=== PATIENT | female | born 1965 | race American Indian/Alaskan Native ===

== ENCOUNTER 2023-06-09 14:47 | Outpatient (RCR) | payer MEDICAID, SELFPAY | END 2023-06-23 23:59 | disposition home or self-care (01) | LOC: CPTX 14:47 | PROVIDERS: PCP Nurse Practitioner Family; Referring Provider Nurse Practitioner Family; Visit Provider Nurse Practitioner Family | DX: Z53.9 Procedure and treatment not carried out, unspecified reason (principal) ==

== ENCOUNTER 2023-12-01 11:11 | Outpatient (RCR) | payer MEDICAID, SELFPAY | END 2023-12-24 23:59 | disposition home or self-care (01) | LOC: CPTX 11:11 | PROVIDERS: PCP Nurse Practitioner Family; Referring Provider Nurse Practitioner Family; Visit Provider Nurse Practitioner Family | DX: Z53.8 Procedure and treatment not carried out for other reasons (principal) ==

== ENCOUNTER 2024-04-10 13:07 | Outpatient (AMB) | payer MEDICAID, SELFPAY ==
[2024-04-10 13:26] VITALS: BP 109/72; PULSE 94; RESP 18; TEMP 36.3; O2SAT 94; BMI 32.3
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
== END 2024-04-10 13:50 | disposition home or self-care (01) ==
LOC: HODSRG 13:07
PROVIDERS: PCP Nurse Practitioner Family; Referring Provider Nurse Practitioner Family; Supervising Provider Orthopaedic Surgery Adult Reconstructive Orthopaedic Surgery; Visit Provider Orthopaedic Surgery Adult Reconstructive Orthopaedic Surgery
DX: T81.49XA Infection following a procedure, other surgical site, initial encounter (principal); Y84.9 Medical procedure, unspecified as the cause of abnormal reaction of the patient, or of later complication, without mention of misadventure at the time of the procedure
CPT/HCPCS: 99213; G0463

== ENCOUNTER → 2024-11-20 | Outpatient (CLI) | payer MEDICAID, SELFPAY ==
--- NOTE | 2024-11-20 14:00 | XR_ITS ---
Examination: Screening digital mammography, bilateral Computer aided detection 3-D breast Tomosynthesis, bilateral Date and time of exam: November 20, 2024 1414 hours Compared to mammograms dating to May 03, 2008 Indication: Screening Technique: Nonmagnified MLO, CC views of the breasts to been obtained, reconstructed from 3-D Tomosynthesis images. R2 computer aided detection program utilized for evaluation of suspicious masses and/or abnormal calcifications. 3-D Tomosynthesis images obtained. Findings: Scattered areas of fibroid rather density. 14 mm focal asymmetry retroareolar region right breast Impression: BI-RADS Category 0: Incomplete: Need additional imaging evaluation Recommend follow-up spot tomographic views of 14 mm focal asymmetry retroareolar region right breast as well as bilateral breast sonography to complete the workup
== END | disposition home or self-care (01) ==
LOC: CDIM 14:05
PROVIDERS: Referring Provider Nurse Practitioner Family; Visit Provider Nurse Practitioner Family
DX: Z12.31 Encounter for screening mammogram for malignant neoplasm of breast (principal); N64.89 Other specified disorders of breast
CPT/HCPCS: 77063; 77067

== ENCOUNTER 2025-01-04 10:36 | Inpatient (IN) | payer MEDICAID, SELFPAY ==
[2025-01-04 10:37] VITALS: BMI 31.7
[2025-01-04 10:57] VITALS: BP 144/83; PULSE 82; RESP 18; TEMP 37.1; O2SAT 99
--- NOTE | 2025-01-04 11:11 | XR_ITS ---
Examination: Bilateral hands or views Technique: AP, lateral each hand 4 views Date and time of exam: January 04, 2025, 1137 hours INDICATIONS: Swelling both hands beginning one week ago. Findings: Bone destruction involving the distal phalanx left third digit Bone destruction involving the ungual tuft tip distal phalanx right third digit No fractures No foreign bodies IMPRESSION: Osteomyelitis distal phalanx left third digit Osteomyelitis ungual tuft tip distal phalanx right third digit
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
[2025-01-04 11:39] LABS: Collection Type, Urine Clean Catch; RBC,Urine 0 /hpf (0-3)
[2025-01-04 11:49] LABS: Lactate (Lactic Acid) 1.5 mMol/L (0.4-2.0)
[2025-01-04 11:51] LABS: Basophils # (Auto) 0.0 Thou/mm3 (0.0-0.2); Basophils % (Auto) 1 % (0-2.5); Eosinophils # (Auto) 0.2 Thou/mm3 (0.0-0.5); Eosinophils % (Auto) 2 % (0-10); Hematocrit 42.5 % (36.0-46.0); Hemoglobin 14.3 g/dL (12.0-16.0); Immature Granulocytes Auto 0.02 Thou/mm3 (0.00-0.00); Lymphocytes # (Auto) 1.8 Thou/mm3 (1.0-4.8); Lymphocytes % (Auto) 20 % (10-50); Mean Corpuscular HGB Conc 33.6 g/dl (31.0-37.0); Mean Corpuscular Hemoglobin 28.7 pg (25.0-35.0); Mean Corpuscular Volume 85 fL (80-100); Monocytes # (Auto) 0.7 Thou/mm3 (0.0-0.8); Monocytes % (Auto) 8 % (0-12); Neutrophils # (Auto) 6.2 Thou/mm3 (1.8-7.7); Neutrophils % (Auto) 69 % (37-80); Nucleated Red Blood Cell # 0.00 Thou/mm3 (0.00-0.00); Nucleated Red Blood Cell % 0 /100 WBC (0); Platelet Count 280 Thou/mm3 (140-440); RDW Standard Deviation 36.0 fL (36.4-46.3); Red Blood Count 4.98 Miln/mm3 (4.00-5.20); White Blood Count 8.9 Thou/mm3 (3.6-11.0)
[2025-01-04 11:59] LABS: Bilirubin,Urine Negative (Negative); Blood,Urine Negative (Negative); Clarity,Urine Clear (Clear/Hazy); Color,Urine Lt-Yellow (Lt Yel-Yel); Glucose, Urine 4+ (Negative); Ketones,Urine Negative (Negative); Leukocyte Esterase,Urine Positive (Negative); Nitrite,Urine Negative (Negative); PH,Urine 6.0 (5.0-7.0); Protein,Urine Negative (Neg - Trace); Specific Gravity,Urine 1.035 (1.001-1.035); Squamous Epithelial Cell,Urine 2 /hpf (0-5); Urobilinogen,Urine Negative mg/dL (0.0-1.0); WBC,Urine 2 /hpf (0-5)
[2025-01-04 12:02] LABS: Sed Rate (ESR) 49 mm/hr (0-30)
[2025-01-04 12:10] VITALS: BP 131/82; PULSE 69; RESP 17; TEMP 37.1; O2SAT 95
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
[2025-01-04] MEDS: cefTRIAXone/D5w 1gm IV premix 1 GM/50 ML BAG IV ×2 (12:17→16:17)
[2025-01-04 12:18] LABS: Alanine Aminotransferase 15 U/L (10-49); Albumin, Serum 4.3 gm/dL (3.5-5.0); Albumin/Globulin Ratio 1.3 (1.2-2.2); Alkaline Phosphatase 151 U/L (46-116); Anion Gap 10 (7-16); Aspartate Amino Transferase 17 U/L (0-34); BUN/Creatinine Ratio 13 Ratio (12-20); Bilirubin,Total 0.4 mg/dL (0.3-1.2); Blood Urea Nitrogen 10 mg/dL (9-23); C-Reactive Protein 2.9 mg/dL (0.0-0.9); Calcium 9.4 mg/dL (8.3-10.6); Calcium (Corrected) 9.4 mg/dL (8.5-10.1); Carbon Dioxide 30.9 mMol/L (20.0-31.0); Chloride 98 mMol/L (98-107); Creatinine (Component) 0.8 mg/dL (0.6-1.3); Estimated Creatinine Clearance 81.3 mL/min (>60); Globulin 3.3 gm/dL (2.3-3.5); Glucose 335 mg/dL (74-106); Osmolality,Calculated 289 (275-295); Potassium 3.8 mMol/L (3.4-5.1); Procalcitonin < 0.04 ng/ml (0.0-0.49); Sodium 139 mMol/L (136-145); Total Protein 7.6 gm/dL (5.7-8.2); eGFR > 60 See Note
[2025-01-04] MEDS: MORPHINE SULF INJ 4 MG/ML VIAL IVP (13:07)
[2025-01-04] MEDS: VANCOMYCIN/NS 1 GM IVPB 200 ML IV (13:16)
--- NOTE | 2025-01-04 13:21 | PC.CC ---
Addendum entered by Jose M Muñoz RN 01/04/25 15:22: transfer canceled per YODIT Philippe Addendum entered by Jose M Muñoz RN 01/04/25 15:15: plastic surgeon is Dr. Otis Bennett Addendum entered by Jose M Muñoz RN 01/04/25 15:12: 1510: received call from Lucia arroyo/ [facility], she stated per plastic surgeon no need for transfer, can treat with keflex and f/u [facility] clinic in [place] as outpatient next week. Addendum entered by Jose M Muñoz RN 01/04/25 14:29: 1420: received call from Angela, he stated he reached out to Dr. Wagner and to try another facility. Call [facility], spoke to Lucia, transfer initiated. Lucia spoke to Angela. Lucia will review clinicals and call back. Called Radha in ER, informed her that she will have to take over. Addendum entered by Jose M Muñoz RN 01/04/25 14:17: 1356: spoke to Denae, provided the reccomendations from Dr. Santoyo. Denae stated he will reach out to our gen surg Dr. Arreola. 1348: received call from Yasmin arroyo/ Keiko STARR, she stated Dr. José Luis Santoyo hand surgeon determined no need for transfer. his recommendations were provided: remove nail from finger, admit for IV antibiotics . Addendum entered by Jose M Muñoz RN 01/04/25 13:41: 1334: Yasmin arroyo/ AJAY STARR called back, she spoke to YODIT Philippe. She will present case and call back Original Note: 1319: Called [facility], spoke to Yasmin, transfer request initiated. She will wait for clinicals to review and call back. 1318: Gathered clinicals and sent to [facility] and [facility]. 1312: received call from Denae [employer] to request transfer for hand surgeon for cellulitits osteomyelitis left middle finger.
[2025-01-04 13:56] VITALS: BP 118/80; PULSE 67; RESP 19; O2SAT 96
--- NOTE | 2025-01-04 15:57 | XR_ITS ---
Examination: Left knee 2 views Technique one AP lateral left knee 2 views Date and time: January 04, 2025, 1624 hours INDICATIONS: Redness and tenderness left knee 3 days. FINDINGS: Advanced tricompartment osteoarthritis Healed patellar fracture Large knee effusion Soft tissue swelling prepatellar IMPRESSION: Advanced tricompartment osteoarthritis No dylan cortical bone destruction Consider ultrasound soft tissue knee follow-up to exclude prepatellar abscess or hematoma
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
[2025-01-04 16:20] VITALS: BP 132/87; PULSE 71; RESP 19; O2SAT 97
[2025-01-04] MEDS: INSULIN LISPRO (AdmeLOG) 1 UNIT/0.01 ML UNIT SC (17:24)
[2025-01-04 18:18] VITALS: BP 132/70; PULSE 76; RESP 18; TEMP 36.6; O2SAT 95
--- NOTE | 2025-01-04 19:38 | PC.NURSE ---
ATTEMPTED TO CALL REPORT NO ANSWER
[2025-01-04 19:55] VITALS: BMI 34.0
[2025-01-04 20:00] VITALS: BP 139/81; PULSE 78; RESP 17; TEMP 36.9; O2SAT 94
[2025-01-04] MEDS: DIAZEPAM 5 MG TABLET 10 MG PO (21:28)
[2025-01-04] MEDS: VANCOMYCIN/D5W 1,250 MG IVPB 250 ML 120 MG IV (21:28)
[2025-01-04] MEDS: RINGERS LACTATED 1000 ML 500 ML 75 ML IV (21:36)
[2025-01-04] MEDS: HEPARIN SOD INJ 5000 UNIT/ML VIAL SC (21:51)
[2025-01-05] VITALS: BP 130/68; PULSE 70; RESP 17; TEMP 36.8; O2SAT 92
[2025-01-05 04:00] VITALS: BP 118/70; PULSE 63; RESP 17; TEMP 36.9; O2SAT 92
[2025-01-05 05:04] LABS: Basophils # (Auto) 0.1 Thou/mm3 (0.0-0.2); Basophils % (Auto) 1 % (0-2.5); Eosinophils # (Auto) 0.2 Thou/mm3 (0.0-0.5); Eosinophils % (Auto) 3 % (0-10); Hematocrit 40.3 % (36.0-46.0); Hemoglobin 13.6 g/dL (12.0-16.0); Immature Granulocytes Auto 0.02 Thou/mm3 (0.00-0.00); Lymphocytes # (Auto) 2.0 Thou/mm3 (1.0-4.8); Lymphocytes % (Auto) 27 % (10-50); Mean Corpuscular HGB Conc 33.7 g/dl (31.0-37.0); Mean Corpuscular Hemoglobin 28.5 pg (25.0-35.0); Mean Corpuscular Volume 85 fL (80-100); Monocytes # (Auto) 0.6 Thou/mm3 (0.0-0.8); Monocytes % (Auto) 8 % (0-12); Neutrophils # (Auto) 4.6 Thou/mm3 (1.8-7.7); Neutrophils % (Auto) 61 % (37-80); Nucleated Red Blood Cell # 0.00 Thou/mm3 (0.00-0.00); Nucleated Red Blood Cell % 0 /100 WBC (0); Platelet Count 258 Thou/mm3 (140-440); RDW Standard Deviation 35.2 fL (36.4-46.3); Red Blood Count 4.77 Miln/mm3 (4.00-5.20); White Blood Count 7.6 Thou/mm3 (3.6-11.0)
[2025-01-05 05:27] LABS: Glucose Estimated Average 286 mg/dL (80-131); Hemoglobin A1C 11.6 % Hgb (4.8-6.0)
[2025-01-05 05:28] LABS: Alanine Aminotransferase 11 U/L (10-49); Albumin, Serum 3.8 gm/dL (3.5-5.0); Albumin/Globulin Ratio 1.3 (1.2-2.2); Alkaline Phosphatase 136 U/L (46-116); Anion Gap 10 (7-16); Aspartate Amino Transferase 15 U/L (0-34); BUN/Creatinine Ratio 13 Ratio (12-20); Bilirubin,Total 0.4 mg/dL (0.3-1.2); Blood Urea Nitrogen 8 mg/dL (9-23); Calcium 8.9 mg/dL (8.3-10.6); Calcium (Corrected) 9.1 mg/dL (8.5-10.1); Carbon Dioxide 27.9 mMol/L (20.0-31.0); Cardiac Risk Estimate 4.3 RATIO (3.7-5.6); Chloride 101 mMol/L (98-107); Cholesterol 166 mg/dL (132-200); Creatinine (Component) 0.6 mg/dL (0.6-1.3); Estimated Creatinine Clearance 112.3 mL/min (>60); Globulin 2.9 gm/dL (2.3-3.5); Glucose 206 mg/dL (74-106); HDL Cholesterol 39 mg/dL (40-60); LDL Cholesterol,Calculated 95 mg/dL (0-130); Osmolality,Calculated 281 (275-295); Potassium 3.6 mMol/L (3.4-5.1); Sodium 139 mMol/L (136-145); Total Protein 6.7 gm/dL (5.7-8.2); Triglycerides 160 mg/dL (30-150); eGFR > 60 See Note
--- NOTE | 2025-01-05 07:26 | PC.NURSE ---
Patient refused 2 units of insulin stating I only want 1 unit, not 2. 2 is too much for me. education provided on sliding scale insulin dosage, and risks of uncontrolled blood sugar.
[2025-01-05 08:00] VITALS: BP 126/57; PULSE 59; RESP 18; TEMP 36.2; O2SAT 93
--- NOTE | 2025-01-05 09:25 | PC.NURSE ---
RN made aware by warehouse shift supervisor RN that patient has home meds at bedside. this RN made request to patient to allow RN to take medications to pharmacy. Patient refused stating my daughter will take them home. patient educated on not taking home meds and MD Liz made aware.
[2025-01-05] MEDS: HEPARIN SOD INJ 5000 UNIT/ML VIAL SC (09:29)
[2025-01-05] MEDS: cefTRIAXone/D5w 2gm 2 GM/50 ML BAG IV (09:29)
[2025-01-05 09:50] VITALS: BMI 33.8
[2025-01-05] MEDS: VANCOMYCIN/D5W 1,250 MG IVPB 250 ML 120 MG IV ×2 (10:32→22:51)
--- NOTE | 2025-01-05 11:18 | PC.SS ---
59YO female, reason for visit: OSTEOMYELITIS SS met with patient at bedside, role, and purpose of today?s contact was explained. Verbal consent was provided to allow patient?s family to be present for initial assessment. Patient confirmed her demographics. Patient stated her primary medical surrogate decisonmaker is her daughter, Karlene Saez [phone]. Patient she requires maximum assistance with both ADLs and ambulation. Her daughter Karlene is her [facility] Caregiver (97hrs.) and assists patient with ADLs/ambulation. Patient reports having the following DME: wheelchair, shower chair, and rollator. Pharmacy: [facility] PCP: Dacia Armstrong, last appt. was 12-29-24. Discharge plan discussed with patient, she is requesting to return home at the time of discharge. Next of kin: Daughter, Karlene Saez [phone] Discharge plan: Home, family to transport.
--- NOTE | 2025-01-05 11:43 | XR_ITS ---
Examination: Duplex scan of the lower extremity, unilateral left Date and time of exam: January 05 2025, 1114 hrs. Indications: Left leg swelling and pain post knee surgery 2 years ago Technique: Duplex scan of the extremity veins using B-mode/grayscale imaging and Doppler spectral analysis and color flow Attention is directed to internal echogenicity, compression and augmentation involving these veins, color flow assessment, spectral analysis Findings: Positive for nonocclusive DVT in the left popliteal left peroneal veins Common femoral superficial femoral posterior tibial veins are open Impression: Positive for nonocclusive DVT in the left popliteal left peroneal veins
[2025-01-05 12:00] VITALS: BP 137/77; PULSE 65; RESP 18; TEMP 36.1; O2SAT 95
[2025-01-05] MEDS: INSULIN LISPRO (AdmeLOG) 1 UNIT/0.01 ML UNIT SC ×2 (12:30→17:20)
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
[2025-01-05 16:00] VITALS: BP 131/75; PULSE 60; RESP 19; TEMP 36.3; O2SAT 96
[2025-01-05 20:00] VITALS: BP 131/76; PULSE 61; RESP 18; TEMP 36.6; O2SAT 95
[2025-01-05] MEDS: DIAZEPAM 5 MG TABLET 10 MG PO (21:15)
[2025-01-05] MEDS: APIXABAN 2.5 MG TABLET 10 MG PO (21:15)
[2025-01-05 22:16] LABS: Vancomycin,Trough 9.2 mcg/mL (5.0-10.0)
[2025-01-06] VITALS: BP 119/69; PULSE 58; RESP 19; TEMP 36.3; O2SAT 91
--- NOTE | 2025-01-06 03:51 | PC.NURSE ---
pt aking for something to sleep and pain med, Dr. Chance was made aware about pt's request for melatonin.
[2025-01-06] MEDS: MELATONIN 3 MG TABLET 6 MG PO (03:59)
[2025-01-06] MEDS: INSULIN LISPRO (AdmeLOG) 1 UNIT/0.01 ML UNIT SC ×3 (07:20→17:06)
[2025-01-06 08:00] VITALS: BP 141/76; PULSE 56; RESP 17; TEMP 36.2; O2SAT 97
[2025-01-06] MEDS: APIXABAN 2.5 MG TABLET 10 MG PO ×2 (08:12→21:32)
[2025-01-06] MEDS: cefTRIAXone/D5w 2gm 2 GM/50 ML BAG IV (08:13)
[2025-01-06] MEDS: VANCOMYCIN/D5W 1,250 MG IVPB 250 ML 120 MG IV ×2 (10:03→21:36)
[2025-01-06] MEDS: INSULIN DEGLUDEC 5 UNIT/0.05 ML (PER 5 UNITS) 8 UNIT SC (10:03)
[2025-01-06 12:00] VITALS: BP 147/88; PULSE 58; RESP 17; TEMP 36.2; O2SAT 96
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
--- NOTE | 2025-01-06 15:11 | PC.SS ---
Rounding note: PICC line pending for 01/07. Needs IV antibiotics for 6weeks. May need home health. Now on insulin. Discharging home when medically clear.
[2025-01-06 16:00] VITALS: BP 145/80; PULSE 67; RESP 18; TEMP 36.6; O2SAT 96
[2025-01-06 16:51] LABS: Basophils # (Auto) 0.1 Thou/mm3 (0.0-0.2); Basophils % (Auto) 1 % (0-2.5); Eosinophils # (Auto) 0.1 Thou/mm3 (0.0-0.5); Eosinophils % (Auto) 2 % (0-10); Hematocrit 43.7 % (36.0-46.0); Hemoglobin 14.8 g/dL (12.0-16.0); Immature Granulocytes Auto 0.04 Thou/mm3 (0.00-0.00); Lymphocytes # (Auto) 1.3 Thou/mm3 (1.0-4.8); Lymphocytes % (Auto) 18 % (10-50); Mean Corpuscular HGB Conc 33.9 g/dl (31.0-37.0); Mean Corpuscular Hemoglobin 28.1 pg (25.0-35.0); Mean Corpuscular Volume 83 fL (80-100); Monocytes # (Auto) 0.5 Thou/mm3 (0.0-0.8); Monocytes % (Auto) 7 % (0-12); Neutrophils # (Auto) 5.3 Thou/mm3 (1.8-7.7); Neutrophils % (Auto) 72 % (37-80); Nucleated Red Blood Cell # 0.00 Thou/mm3 (0.00-0.00); Nucleated Red Blood Cell % 0 /100 WBC (0); Platelet Count 338 Thou/mm3 (140-440); RDW Standard Deviation 35.2 fL (36.4-46.3); Red Blood Count 5.27 Miln/mm3 (4.00-5.20); White Blood Count 7.4 Thou/mm3 (3.6-11.0)
[2025-01-06 17:02] LABS: Alanine Aminotransferase 14 U/L (10-49); Albumin, Serum 4.3 gm/dL (3.5-5.0); Albumin/Globulin Ratio 1.3 (1.2-2.2); Alkaline Phosphatase 153 U/L (46-116); Anion Gap 11 (7-16); Aspartate Amino Transferase 19 U/L (0-34); BUN/Creatinine Ratio 12 Ratio (12-20); Bilirubin,Total 0.3 mg/dL (0.3-1.2); Blood Urea Nitrogen 7 mg/dL (9-23); Calcium 9.7 mg/dL (8.3-10.6); Calcium (Corrected) 9.7 mg/dL (8.5-10.1); Carbon Dioxide 25.9 mMol/L (20.0-31.0); Chloride 103 mMol/L (98-107); Creatinine (Component) 0.6 mg/dL (0.6-1.3); Estimated Creatinine Clearance 112.3 mL/min (>60); Globulin 3.4 gm/dL (2.3-3.5); Glucose 228 mg/dL (74-106); Osmolality,Calculated 284 (275-295); Potassium 3.6 mMol/L (3.4-5.1); Sodium 140 mMol/L (136-145); Total Protein 7.7 gm/dL (5.7-8.2); eGFR > 60 See Note
[2025-01-06 20:00] VITALS: BP 137/79; PULSE 70; RESP 17; TEMP 36.7; O2SAT 96
[2025-01-06] MEDS: DIAZEPAM 5 MG TABLET 10 MG PO (21:32)
[2025-01-06] MEDS: DiphenhydrAMINE ELIX 25 MG/10 ML UDC 6.25 MG PO (21:38)
[2025-01-06 23:50] VITALS: BP 149/74; PULSE 72; RESP 18; TEMP 36.6; O2SAT 96
[2025-01-07] VITALS (8 sets, daily range): BP systolic 128–177; BP diastolic 73–94; PULSE 55–67; RESP 14–19; TEMP 36.2–36.8; O2SAT 93–99
[2025-01-07 05:21] LABS: Basophils # (Auto) 0.1 Thou/mm3 (0.0-0.2); Basophils % (Auto) 1 % (0-2.5); Eosinophils # (Auto) 0.1 Thou/mm3 (0.0-0.5); Eosinophils % (Auto) 1 % (0-10); Hematocrit 42.3 % (36.0-46.0); Hemoglobin 14.3 g/dL (12.0-16.0); Immature Granulocytes Auto 0.02 Thou/mm3 (0.00-0.00); Lymphocytes # (Auto) 2.5 Thou/mm3 (1.0-4.8); Lymphocytes % (Auto) 32 % (10-50); Mean Corpuscular HGB Conc 33.8 g/dl (31.0-37.0); Mean Corpuscular Hemoglobin 28.1 pg (25.0-35.0); Mean Corpuscular Volume 83 fL (80-100); Monocytes # (Auto) 0.6 Thou/mm3 (0.0-0.8); Monocytes % (Auto) 8 % (0-12); Neutrophils # (Auto) 4.5 Thou/mm3 (1.8-7.7); Neutrophils % (Auto) 58 % (37-80); Nucleated Red Blood Cell # 0.00 Thou/mm3 (0.00-0.00); Nucleated Red Blood Cell % 0 /100 WBC (0); Platelet Count 335 Thou/mm3 (140-440); RDW Standard Deviation 34.9 fL (36.4-46.3); Red Blood Count 5.09 Miln/mm3 (4.00-5.20); White Blood Count 7.8 Thou/mm3 (3.6-11.0)
[2025-01-07 05:40] LABS: Alanine Aminotransferase 13 U/L (10-49); Albumin, Serum 4.0 gm/dL (3.5-5.0); Albumin/Globulin Ratio 1.2 (1.2-2.2); Alkaline Phosphatase 142 U/L (46-116); Anion Gap 10 (7-16); Aspartate Amino Transferase 14 U/L (0-34); BUN/Creatinine Ratio 12 Ratio (12-20); Bilirubin,Total 0.3 mg/dL (0.3-1.2); Blood Urea Nitrogen 7 mg/dL (9-23); Calcium 9.5 mg/dL (8.3-10.6); Calcium (Corrected) 9.5 mg/dL (8.5-10.1); Carbon Dioxide 26.8 mMol/L (20.0-31.0); Chloride 103 mMol/L (98-107); Creatinine (Component) 0.6 mg/dL (0.6-1.3); Estimated Creatinine Clearance 112.3 mL/min (>60); Globulin 3.3 gm/dL (2.3-3.5); Glucose 170 mg/dL (74-106); Osmolality,Calculated 281 (275-295); Potassium 3.4 mMol/L (3.4-5.1); Sodium 140 mMol/L (136-145); Total Protein 7.3 gm/dL (5.7-8.2); eGFR > 60 See Note
[2025-01-07] MEDS: INSULIN LISPRO (AdmeLOG) 1 UNIT/0.01 ML UNIT SC ×3 (07:27→17:00)
--- NOTE | 2025-01-07 08:00 | XR_ITS ---
Examination: Ultrasound-guided needle placement right cephalic vein. Dual-lumen central line placement (PICC line). Fluoroscopy AP chest, portable, single view Exam date and time:January 07, 2025 1030 hours INDICATIONS: Need for intravenous large, antibiotic therapy A timeout was completed verifying correct patient, procedure, site, positioning Informed consent provided Technique: The patient's site was prepped and draped in sterile fashion. Maximum Sterile Barrier Technique used including cap, mask, sterile gown, sterile gloves, and sterile full body drape. If ultrasound technique used: sterile gel and sterile probe covers. Hand Hygiene performed using proper scrub, soap and water, or alcohol-based hand rub. Ultrasound utilized to confirm patent cephalic vein Utilizing ultrasonographic guidance successful 21-gauge needle puncture into the right cephalic vein Ultrasound images recorded and stored. 5 cc 1% lidocaine administered for local anesthetic. Successful micropuncture with a 21-gauge needle is performed. 0.18 wire guide is then introduced into the SVC under fluoroscopic guidance. Dual-lumen catheter dilator is then introduced, followed by the catheter in the SVC and proper position under fluoroscopic guidance. Successful aspiration of blood and flushing with heparinized saline is then performed in the 2 venous limbs. The catheter sutured in place. Findings: Under fluoroscopy, the tip of the catheter is in good position in the vena cava. Portable chest x-ray, post line placement is ordered. Estimated blood loss 3 cc The patient tolerated the procedure well and was in stable and satisfactory condition at completion of the procedure Impression: Successful ultrasound-guided needle placement right cephalic vein Successful placement of dual lumen central line, percutaneous Fluoroscopy 0.6 minute radiation dose 1.88 milligray 1 spot fluoroscopic chest film. AP chest completion procedure demonstrates satisfactory position central line. May use central line.
[2025-01-07] MEDS: cefTRIAXone/D5w 2gm 2 GM/50 ML BAG IV (08:48)
--- NOTE | 2025-01-07 09:04 | PC.NURSE ---
This RN has concerns patient maybe self medicating, charge nurse and MDs aware avasure in place for patient safety.
[2025-01-07 09:25] LABS: Vancomycin,Trough 9.4 mcg/mL (5.0-10.0)
[2025-01-07] MEDS: INSULIN DEGLUDEC 5 UNIT/0.05 ML (PER 5 UNITS) 8 UNIT SC (09:37)
--- NOTE | 2025-01-07 09:47 | PD.IDPROG ---
Subjective Subjective Interval history: pt on empiric vanco and rocephin when doxy and rocephin empirically ok, so changed to doxy and rocephin empiric rx thru 02/15/25 with weekly cbc, renal panel, esr and line removal at end of rx Exam Vital Signs Temp Pulse Resp BP Pulse Ox O2 Del Method 97.2 F 55 L 17 128/73 94 L Room Air 01/07/25 07:28 01/07/25 07:28 01/07/25 07:28 01/07/25 07:28 01/07/25 07:28 01/07/25 07:28 Narrative Exam fingers ok. no tka noted. 3 cs noted . no amputations. on valium per others Objective - Internal Medicine Labs 01/07/25 04:57 01/07/25 04:57 Labs: Laboratory Results - last 24 hr 01/06/25 01/07/25 01/07/25 16:16 04:57 08:55 WBC 7.4 7.8 RBC 5.27 H 5.09 Hgb 14.8 14.3 Hct 43.7 42.3 MCV 83 83 MCH 28.1 28.1 MCHC 33.9 33.8 RDW Std Deviation 35.2 L 34.9 L Plt Count 338 D 335 Neut % (Auto) 72 58 Lymph % (Auto) 18 32 [place] % (Auto) 7 8 Eos % (Auto) 2 1 Baso % (Auto) 1 1 Neut # (Auto) 5.3 4.5 Lymph # (Auto) 1.3 2.5 [place] # (Auto) 0.5 0.6 Eos # (Auto) 0.1 0.1 Baso # (Auto) 0.1 0.1 Immature Gran # (Auto) 0.04 H 0.02 H Absolute Nucleated RBC 0.00 0.00 Immature Gran % 1 H 0 Nucleated RBC % 0 0 Sodium 140 140 Potassium 3.6 3.4 Chloride 103 103 Carbon Dioxide 25.9 26.8 Anion Gap 11 10 BUN 7 L 7 L Creatinine 0.6 0.6 Estim Creat Clear Calc 112.3 112.3 eGFR > 60 > 60 BUN/Creatinine Ratio 12 12 Glucose 228 H 170 H D Calculated Osmolality 284 281 Calcium 9.7 9.5 Corrected Calcium 9.7 9.5 Total Bilirubin 0.3 0.3 AST 19 14 ALT 14 13 Alkaline Phosphatase 153 H 142 H Total Protein 7.7 7.3 Albumin 4.3 D 4.0 Globulin 3.4 3.3 Albumin/Globulin Ratio 1.3 1.2 Vancomycin Trough 9.4 Assessment & Plan A&P Narrative distal finger osteo by xray with elevated crp and esr and a1c of >11 noted optimize dm control f/u with outpt primary . rocephin 2 gm iv daily and doxy 100 bid po both thru 02/15/ am. with picc line or burns if picc fails and weekly cbc, renal panel, esr and line removal at end of rx will see again prn Time Spent With Patient Time: Total time spent is greater than 50% in coordination of care (as documented) at patient's floor/unit and/or counseling patient:
--- NOTE | 2025-01-07 09:51 | PC.SS ---
Addendum entered by Claudia Calhoun 01/07/25 11:01: SS spoke to Dr. Guerra who confirmed pt will require IV antibiotic, Rocephin grm 1 X day until 02-15-25. SS has informed transfer nurse, Erin. Original Note: Follow up note: Pt will require IV antibiotics for 6 weeks, doxy and rocephin thru 02/15/25. Pt will have PICC line placed today. Pt will return home with .
--- NOTE | 2025-01-07 10:08 | PD.ADDPROG ---
Addendum Progress Note Addendum Date of report being addended: 01/07/25 Narrative: optimize dm control and give rocephin 2 gm/day and doxy 100 po bid thru 02/15 with weekly cbc, renal panel, esr and picc line for iv rx. home when all arranged.
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
[2025-01-07] MEDS: HEPARIN SOD LOCK SYR 100 UNIT/ML 500 UNIT STFIELD (11:25)
[2025-01-07] MEDS: MIDAZOLAM INJ 1 MG/ML VIAL 2 ML 2 MG IVP (11:26)
--- NOTE | 2025-01-07 11:27 | PC.CC ---
Addendum entered by Erin Brand RN 01/07/25 14:17: [facility] is 01/10. [facility]CS made aware. Doctors are made aware that patient can not be discharged until then. Addendum entered by Erin Brand RN 01/07/25 13:27: Patient has been booked with [facility], pending SOC Addendum entered by Erin Brand RN 01/07/25 13:12: [facility] has accepted patient, pending HH agency Original Note: Sent HH referral out to all HH agencies and infusion pharmacy
[2025-01-07] MEDS: LIDOCAINE INJ PF 1% 30 ML VIAL INFL (11:30)
--- NOTE | 2025-01-07 12:03 | PD.RESDS ---
Planned Discharge Date 01/07/25 DS: Providers Provider Date of admission: 01/04/25 15:52 Primary care physician: Dacia Armstrong Admitting Provider: Keri Guerra MD Attending Provider on Admission: Keri Guerra MD Consults: 01/05/25 11:02 Referral Registered Dietitian Routine Comment: 01/05/25 13:27 Referral OP Wound Healing Dept Routine Comment: Referral Wound Care Routine Comment: 01/06/25 08:41 Consult to Infectious Diseases Routine Comment: For osteomyelitis of hand Consulting Provider: Gabriel Rangel 01/06/25 13:02 PT [Referral Physical Therapy] Routine Comment: Physician Instructions: Attending Provider on DC: Juan Barrett DO Discharging Provider: Juan Barrett DO Hospital Course Hospital Course Hospital course: Reason for hospitalization: Summary: Imaging: Discharge Recommendations: - Follow up with PCP within 1 week of discharge - Continue rest of medications as previously prescribed - Return to the ED or call EMS if symptoms return and/or worsen If you don't have a PCP, you can make an appointment at the [facility]: [address] [place], [place] [id number] Hospital Diagnoses: - Patient plan of care was discussed with the senior resident [...] and attending physician [...] Juan Barrett, PGY-1 Time Spent with Patient Time attestation: Total time spent providing and/or coordinating discharge services: Home Health Home Health Referral Orders: 01/07/25 11:15 Home Health Referral Routine Reason For Exam: Osteomyelitis, DVT Home-Bound The patient must either because of illness or injury, need the aid of supportive devices such as crutches, canes, wheelchairs, and walkers; the use of special transportation; or the assistance of another person in order to leave their place of residence; OR have a condition such that leaving his or her home is medically contraindicated. In addition, the patient also meets the following criteria: patient is normally unable to leave the home and leaving home requires considerable taxing effort. Addendum to Home Health Certification Practitioner's Certification: I certify that the patient has been under my care in the hospital and the care of attending physician (see below). We had a lywr-iu-efiw encounter on (see date below). My clinical findings indicate that the patient is home bound per the above criteria and the Home Health Services noted in these orders are medically necessary. The primary reason for the vtqz-cb-rkow encounter is related to the fact that the patient requires home health services. Date Certifying Grpt-ju-Hlun Physician Encounter: 01/04/25 Physician's Name who will Assume Oversight for Services: Dacia Armstrong Physician's Phone No.who will Assume Oversight for Service: TELEVISION NEWS PHOTOGRAPHER - Community Resources: No PT to Evaluate: Yes PT to evaluate and provide a treatmnet plan to increase patient's mobility and strength. Wound Care: Yes Home Health RN - Wound Care Order: Finger wound IV Therapy: Yes IV Medication: Ceftriaxone IV Dose: 2gm IV Frequency: Qday IV Stop Date: 02/15/25 Discontinue PICC Line Once Treatment Complete: Yes RN Safety Evaluation: Yes RN to evaluate and create a plan of care that will produce positive outcomes. Palliative Treatment: No Palliative treatment and evaluate the need for hospice. Home Health Aide - Personal Care: No Home Health Aide to assist with any ADL's. Exam Vital Signs Temp Pulse Resp BP Pulse Ox O2 Del Method 97.2 F 67 16 131/83 H 93 L Room Air 01/07/25 07:28 01/07/25 10:20 01/07/25 10:20 01/07/25 10:20 01/07/25 10:20 01/07/25 10:20 Discharge Plan Prescriptions/Referrals Prescriptions/Med Rec: No Action hydrocodone-acetaminophen 10-325 mg Tablet 1 tab PO Q8H PRN (Reason: Pain) aspirin 81 mg Tablet 81 mg PO QDAY diazepam [Valium] 10 mg tablet 10 mg PO HS Referrals: Dacia Armstrong [Primary Care Provider] Patient/Caregiver Discharge Instructions Print Language: Danish
[2025-01-07] MEDS: DiphenhydrAMINE ELIX 25 MG/10 ML UDC 6.25 MG PO (12:39)
--- NOTE | 2025-01-07 12:46 | PCS.ST ---
SS met with pt and dtr to follow up choices for Home Health. Pt and dtr do not have preference. Dtr Karla, phone# [phone] will be caring for pt at home. Dtr is requesting referral also be sent to Wound Clinic. SS has faxed and sent wound referral using [employer]. SS has provided dtr with the Community Resource List. Dtr Karla states she will be caring for pt at home.
--- NOTE | 2025-01-07 13:33 | PC.PT ---
Patient was already ambulating to the restroom as per Nursing staff. Patient will dc to home with homehealth. PT eval here in the acute setting is not indicated at this time. Will cancel PT evaluation.
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
--- NOTE | 2025-01-07 18:09 | PC.NURSE ---
Call from katelynn masterson patient's daughter unplugged aveasure upon entering the room. RN entered room plugged aversure back in and explained the need for monitoring for patient safety. Second call from isael patient had covered camera with towel. MD aware of patient noncompliance, md will enter order for cardiac monitoring to monitor patient for decrease in heart rate.
--- NOTE | 2025-01-07 20:17 | PC.NURSE ---
Pt and daughter Sandee (pt's caregiver) are refusing avasure and stated that no one explain to the pt the reason why they put that camera in the room, they stated that a lady told the patient they would put it there and once her daughter (caregiver) returns to the room they could remove it. caregiver stated that once she returned to the room, they unplugged the avasure, per caregiver statement, the RN got in the room and started being mean to them Caregiver was educated about the reason the camera is in the room, she was informed that they put it for safety purposes since pt is lethargic and that put her as a high fall risk. Caregiver re-stated that the avasure makes them feel uncomfortable and that they do not want it in the room. Caregiver was educated to call so we can assist pt to the restroom just to make sure she is safe and to prevent a fall. Caregiver stated that she is pt's caregiver and that she could take the patient to the restroom on her own, Caregiver was educated that we are responsible for the pt's safety and for that reason she has to call just to prevent a fall. Caregiver verbalizes understanding and stated that she will let us know if pt needs to step out of bed or use the restroom. timber setter is aware of pt and caregiver refusal of avasure.
[2025-01-07] MEDS: APIXABAN 2.5 MG TABLET 10 MG PO (21:12)
[2025-01-07] MEDS: DOXYCYCLINE 100 MG TABLET PO (21:13)
[2025-01-07] MEDS: DIAZEPAM 5 MG TABLET 10 MG PO (21:13)
[2025-01-07] MEDS: DiphenhydrAMINE ELIX 25 MG/10 ML UDC 12.5 MG PO (21:37)
[2025-01-08] VITALS (8 sets, daily range): BP systolic 132–168; BP diastolic 77–102; PULSE 53–92; RESP 17–18; TEMP 36.7–37; O2SAT 93–95
[2025-01-08 05:39] LABS: Basophils # (Auto) 0.1 Thou/mm3 (0.0-0.2); Basophils % (Auto) 1 % (0-2.5); Eosinophils # (Auto) 0.1 Thou/mm3 (0.0-0.5); Eosinophils % (Auto) 1 % (0-10); Hematocrit 43.0 % (36.0-46.0); Hemoglobin 14.5 g/dL (12.0-16.0); Immature Granulocytes Auto 0.01 Thou/mm3 (0.00-0.00); Lymphocytes # (Auto) 2.6 Thou/mm3 (1.0-4.8); Lymphocytes % (Auto) 33 % (10-50); Mean Corpuscular HGB Conc 33.7 g/dl (31.0-37.0); Mean Corpuscular Hemoglobin 28.4 pg (25.0-35.0); Mean Corpuscular Volume 84 fL (80-100); Monocytes # (Auto) 0.6 Thou/mm3 (0.0-0.8); Monocytes % (Auto) 8 % (0-12); Neutrophils # (Auto) 4.4 Thou/mm3 (1.8-7.7); Neutrophils % (Auto) 56 % (37-80); Nucleated Red Blood Cell # 0.00 Thou/mm3 (0.00-0.00); Nucleated Red Blood Cell % 0 /100 WBC (0); Platelet Count 365 Thou/mm3 (140-440); RDW Standard Deviation 35.5 fL (36.4-46.3); Red Blood Count 5.11 Miln/mm3 (4.00-5.20); White Blood Count 7.7 Thou/mm3 (3.6-11.0)
[2025-01-08 05:59] LABS: Sed Rate (ESR) 51 mm/hr (0-30)
[2025-01-08 06:00] LABS: Alanine Aminotransferase 17 U/L (10-49); Albumin, Serum 4.1 gm/dL (3.5-5.0); Albumin/Globulin Ratio 1.1 (1.2-2.2); Alkaline Phosphatase 145 U/L (46-116); Anion Gap 10 (7-16); Aspartate Amino Transferase 21 U/L (0-34); BUN/Creatinine Ratio 13 Ratio (12-20); Bilirubin,Total 0.4 mg/dL (0.3-1.2); Blood Urea Nitrogen 8 mg/dL (9-23); C-Reactive Protein 1.0 mg/dL (0.0-0.9); Calcium 9.3 mg/dL (8.3-10.6); Calcium (Corrected) 9.3 mg/dL (8.5-10.1); Carbon Dioxide 28.2 mMol/L (20.0-31.0); Chloride 104 mMol/L (98-107); Creatinine (Component) 0.6 mg/dL (0.6-1.3); Estimated Creatinine Clearance 112.3 mL/min (>60); Globulin 3.7 gm/dL (2.3-3.5); Glucose 126 mg/dL (74-106); Magnesium 2.0 mg/dL (1.6-2.6); Osmolality,Calculated 283 (275-295); Phosphorous 4.2 mg/dL (2.4-5.1); Potassium 3.3 mMol/L (3.4-5.1); Sodium 142 mMol/L (136-145); Total Protein 7.8 gm/dL (5.7-8.2); eGFR > 60 See Note
[2025-01-08 06:43] LABS: Hepatitis C Antibody Non Reactive (Non React)
[2025-01-08 06:53] LABS: HIV (1&2) Antibody Rapid Non-Reactive
[2025-01-08] MEDS: APIXABAN 2.5 MG TABLET 10 MG PO ×2 (08:31→21:05)
[2025-01-08] MEDS: DOXYCYCLINE 100 MG TABLET PO ×2 (08:31→21:06)
[2025-01-08] MEDS: INSULIN LISPRO (AdmeLOG) 1 UNIT/0.01 ML UNIT SC ×3 (08:31→17:50)
[2025-01-08] MEDS: INSULIN DEGLUDEC 5 UNIT/0.05 ML (PER 5 UNITS) 8 UNIT SC (08:32)
[2025-01-08] MEDS: cefTRIAXone/D5w 2gm 2 GM/50 ML BAG IV (08:32)
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
--- NOTE | 2025-01-08 14:50 | PC.CC ---
Per Dr. Barrett, patient to discharge on Tresiba. Requested CGM orders. PA submitted for [employer] 3 Plus sensor/reader - pending. Attempted to see patient at bedside for insulin education. Patient soundly asleep; chose not to awaken. Will follow-up.
[2025-01-08] MEDS: LOSARTAN POTASSIUM 25 MG TABLET PO (16:51)
[2025-01-08] MEDS: DIAZEPAM 5 MG TABLET 10 MG PO (21:06)
[2025-01-08] MEDS: DiphenhydrAMINE ELIX 25 MG/10 ML UDC 12.5 MG PO (21:13)
[2025-01-09] VITALS: BP 142/71; PULSE 85; RESP 17; TEMP 36.6; O2SAT 95
[2025-01-09] MEDS: ACETAMINOPHEN 325 MG TABLET 650 MG PO (00:48)
[2025-01-09] MEDS: ONDANSETRON INJ 2 MG/ML INJ 2 ML 4 MG IVP (01:11)
[2025-01-09] MEDS: METOCLOPRAMIDE INJ 5 MG/ML VIAL 2 ML IVP (01:55)
--- NOTE | 2025-01-09 02:28 | PC.NURSE ---
At 0100, Pt developed new nausea and vomiting. Zofran IVP given with no improvement. Dr. Chance notified and ordered Reglan IVP. In addition, patient had a 4 beat PVC and MD was notified. Plan of care to be followed.
[2025-01-09 04:00] VITALS: BP 163/96; PULSE 61; RESP 17; TEMP 37.1; O2SAT 94
[2025-01-09 06:11] LABS: Basophils # (Auto) 0.1 Thou/mm3 (0.0-0.2); Basophils % (Auto) 1 % (0-2.5); Eosinophils # (Auto) 0.0 Thou/mm3 (0.0-0.5); Eosinophils % (Auto) 0 % (0-10); Hematocrit 47.0 % (36.0-46.0); Hemoglobin 15.9 g/dL (12.0-16.0); Immature Granulocytes Auto 0.06 Thou/mm3 (0.00-0.00); Lymphocytes # (Auto) 1.1 Thou/mm3 (1.0-4.8); Lymphocytes % (Auto) 11 % (10-50); Mean Corpuscular HGB Conc 33.8 g/dl (31.0-37.0); Mean Corpuscular Hemoglobin 28.1 pg (25.0-35.0); Mean Corpuscular Volume 83 fL (80-100); Monocytes # (Auto) 0.1 Thou/mm3 (0.0-0.8); Monocytes % (Auto) 1 % (0-12); Neutrophils # (Auto) 9.0 Thou/mm3 (1.8-7.7); Neutrophils % (Auto) 87 % (37-80); Nucleated Red Blood Cell # 0.00 Thou/mm3 (0.00-0.00); Nucleated Red Blood Cell % 0 /100 WBC (0); Platelet Count 412 Thou/mm3 (140-440); RDW Standard Deviation 35.7 fL (36.4-46.3); Red Blood Count 5.66 Miln/mm3 (4.00-5.20); White Blood Count 10.4 Thou/mm3 (3.6-11.0)
[2025-01-09 06:44] LABS: Alanine Aminotransferase 24 U/L (10-49); Albumin, Serum 4.5 gm/dL (3.5-5.0); Albumin/Globulin Ratio 1.2 (1.2-2.2); Alkaline Phosphatase 166 U/L (46-116); Anion Gap 16 (7-16); Aspartate Amino Transferase 24 U/L (0-34); BUN/Creatinine Ratio 14 Ratio (12-20); Bilirubin,Total 0.4 mg/dL (0.3-1.2); Blood Urea Nitrogen 10 mg/dL (9-23); Calcium 9.7 mg/dL (8.3-10.6); Calcium (Corrected) 9.7 mg/dL (8.5-10.1); Carbon Dioxide 22.7 mMol/L (20.0-31.0); Chloride 101 mMol/L (98-107); Creatinine (Component) 0.7 mg/dL (0.6-1.3); Estimated Creatinine Clearance 96.3 mL/min (>60); Globulin 3.9 gm/dL (2.3-3.5); Glucose 247 mg/dL (74-106); Magnesium 1.7 mg/dL (1.6-2.6); Osmolality,Calculated 286 (275-295); Phosphorous 4.4 mg/dL (2.4-5.1); Potassium 3.4 mMol/L (3.4-5.1); Sodium 140 mMol/L (136-145); Total Protein 8.4 gm/dL (5.7-8.2); eGFR > 60 See Note
[2025-01-09 08:00] VITALS: BP 169/106; PULSE 66; RESP 18; TEMP 38.1; O2SAT 93
[2025-01-09 08:16] VITALS: BP 163/96; PULSE 61
[2025-01-09] MEDS: DOXYCYCLINE 100 MG TABLET PO (08:16)
[2025-01-09] MEDS: LOSARTAN POTASSIUM 25 MG TABLET PO (08:16)
[2025-01-09] MEDS: APIXABAN 2.5 MG TABLET 10 MG PO (08:17)
[2025-01-09] MEDS: INSULIN LISPRO (AdmeLOG) 1 UNIT/0.01 ML UNIT SC ×2 (08:17→12:29)
[2025-01-09] MEDS: cefTRIAXone/D5w 2gm 2 GM/50 ML BAG IV (08:17)
[2025-01-09] MEDS: INSULIN DEGLUDEC 5 UNIT/0.05 ML (PER 5 UNITS) 8 UNIT SC (08:18)
--- NOTE | 2025-01-09 09:52 | PC.SS ---
Follow up note: Pt is requiring IV antibiotic, Ceftriaxon 1 X day until 02-16-25. Pt will return home with Home Health Services.
--- NOTE | 2025-01-09 10:34 | PD.RESPRO ---
Documentation for date of: 01/09/25 Exam Vital Signs Temp Pulse Resp BP Pulse Ox O2 Del Method O2 Flow Rate 100.6 F H 61 18 163/96 H 93 L Room Air 2 01/09/25 08:00 01/09/25 08:16 01/09/25 08:00 01/09/25 08:16 01/09/25 08:00 01/09/25 08:00 01/07/25 11:45 Objective Labs 01/09/25 04:50 01/09/25 04:50 Labs: Laboratory Results - last 24 hr 01/09/25 04:50 WBC 10.4 RBC 5.66 H Hgb 15.9 Hct 47.0 H MCV 83 MCH 28.1 MCHC 33.8 RDW Std Deviation 35.7 L Plt Count 412 D Neut % (Auto) 87 H Lymph % (Auto) 11 [place] % (Auto) 1 Eos % (Auto) 0 Baso % (Auto) 1 Neut # (Auto) 9.0 H Lymph # (Auto) 1.1 [place] # (Auto) 0.1 Eos # (Auto) 0.0 Baso # (Auto) 0.1 Immature Gran # (Auto) 0.06 H Absolute Nucleated RBC 0.00 Immature Gran % 1 H Nucleated RBC % 0 Sodium 140 Potassium 3.4 Chloride 101 Carbon Dioxide 22.7 Anion Gap 16 BUN 10 Creatinine 0.7 Estim Creat Clear Calc 96.3 eGFR > 60 BUN/Creatinine Ratio 14 Glucose 247 H D Calculated Osmolality 286 Calcium 9.7 Corrected Calcium 9.7 Phosphorus 4.4 Magnesium 1.7 Total Bilirubin 0.4 AST 24 ALT 24 Alkaline Phosphatase 166 H D Total Protein 8.4 H Albumin 4.5 Globulin 3.9 H Albumin/Globulin Ratio 1.2 Quality Measures Quality Measures VTE prophylaxis Assessment & Plan Assessment Current Active Medications: Generic Name Dose Route Start Last Admin Trade Name Freq PRN Reason Stop Dose Admin Acetaminophen 650 mg 01/04/25 15:52 01/09/25 00:48 Acetaminophen 325 Mg Tablet PO 02/03/25 15:51 650 mg Q6H PRN Administration PAIN SCALE 1-3 (mild Hydrocodone Bitart/Acetaminophen 1 tab 01/04/25 15:52 01/09/25 04:25 Hydrocodone/Apap 10/325 Tab PO 01/09/25 15:51 1 tab Q4HR PRN Administration PAIN SCALE 7-10 (Severe Apixaban 10 mg 01/05/25 21:00 01/09/25 08:17 Apixaban 2.5 Mg Tablet PO 01/12/25 21:01 10 mg BID KILLIAN Administration Dextrose 25 ml 01/04/25 15:57 Dextrose 50%-Water Inj 50 Ml Syringe IV 02/03/25 15:56 Q15MIN PRN BG 50-70 responsive npo pt Dextrose 50 ml 01/04/25 15:57 Dextrose 50%-Water Inj 50 Ml Syringe IV 02/03/25 15:56 Q15MIN PRN BG <50 OR BG <70 & pt unresponsive Diazepam 10 mg 01/04/25 21:00 01/08/25 21:06 Diazepam 5 Mg Tablet PO 02/03/25 20:59 10 mg HS KILLIAN Administration Doxycycline Hyclate 100 mg 01/07/25 21:00 01/09/25 08:16 Doxycycline 100 Mg Tablet PO 01/14/25 20:59 100 mg BID KILLIAN Administration Glucagon 1 mg 01/04/25 15:57 Glucagon Inj 1 Mg Vial IM Q15MIN PRN BG <70, and no IV access Ceftriaxone Sodium/Dextrose 2 gm in 50 mls @ 100 mls/hr 01/05/25 09:00 01/09/25 08:17 Rocephin/D5w 2gm IV 01/12/25 08:59 100 mls/hr QDAY KILLIAN Administration Magnesium Sulfate 4 gm in 50 mls @ 12.5 mls/hr 01/09/25 08:57 Magnesium Sulfate Ivpb IV 01/09/25 12:56 X1 ONE Insulin Degludec 8 unit 01/07/25 09:00 01/09/25 08:18 Insulin Degludec 5 Unit/0.05 Ml (Per 5 Units) SC 02/06/25 08:59 8 unit QDAY KILLIAN Administration Insulin Human Lispro 0 unit 01/05/25 08:30 01/09/25 08:17 Insulin Lispro (Admelog) 1 Unit/0.01 Ml Unit SC 02/03/25 16:59 4 unit AC KILLIAN Administration Protocol Losartan Potassium 25 mg 01/08/25 16:00 01/09/25 08:16 Losartan Potassium 25 Mg Tablet PO 02/07/25 15:59 25 mg QDAY KILLIAN Administration Ondansetron HCl 4 mg 01/04/25 15:52 01/09/25 01:11 Ondansetron Inj 2 Mg/Ml Inj 2 Ml IVP 02/03/25 15:51 4 mg Q6H PRN Administration NAUSEA OR VOMITING Protocol Sennosides 1 tab 01/05/25 09:00 01/09/25 08:17 Senna Tablet PO 02/04/25 08:59 1 tab QDAY KILLIAN Administration Protocol
--- NOTE | 2025-01-09 10:57 | XR_ITS ---
Examination: AP chest single view Technique one AP portable upright chest single view Date and time: January 09, 2025 1133 hours, comparison March 08, 2021 INDICATIONS: Fever hypoxia today. FINDINGS: Right PICC line tip SVC satisfactory position. Normal heart size. No pneumonia or pulmonary edema. Old left-sided rib fractures IMPRESSION: No pneumonia identified
[2025-01-09 12:00] VITALS: BP 92/54; PULSE 81; RESP 16; TEMP 36.3; O2SAT 93
[2025-01-09] MEDS: Magnesium Sulfate 4 GM Ivpb 4 GM/50 ML BAG IV (12:29)
--- NOTE | 2025-01-09 12:33 | PC.CC ---
Addendum entered by Jose M Muñoz RN 01/09/25 14:33: informed team during rounding that delivery of medications and HH has been coordinated and is ready for discharge if cleared. Addendum entered by Jose M Muñoz RN 01/09/25 13:38: spoke to jacob at [facility], she confirmed SOC @ 0900 on 01/10. ok to dc today Original Note: received messaged from [facility] stating they have been unable to get ahold of the patient and daughter. Facesheet had incorrect information for daughter per patient. Daughter is Karla Saez [phone] who will be providing care. Spoke to Hung at [facility] and he said he made contact with Karla and meds scheduled to be delivered after 230pm today. Call [facility], SOC has been moved around. they will call me back once they figure out the soc and time.
--- NOTE | 2025-01-09 15:13 | ESDS_ITS ---
Planned Discharge Date 01/09/25 DS: Providers Provider Date of admission: 01/04/25 15:52 Primary care physician: Dacia Armstrong Admitting Provider: Keri Guerra MD Attending Provider on Admission: Ricardo Urias MD Consults: 01/05/25 11:02 Referral Registered Dietitian Routine Comment: 01/05/25 13:27 Referral OP Wound Healing Dept Routine Comment: Referral Wound Care Routine Comment: 01/06/25 08:41 Consult to Infectious Diseases Routine Comment: For osteomyelitis of hand Consulting Provider: Gabriel aRngel 01/07/25 15:07 Referral OP Wound Healing Dept Routine Comment: Left 3rd finger cooking burn, + osteomyelitis Attending Provider on DC: Ricardo Urias MD Discharging Provider: Juan Barrett DO Anticipated date of discharge: 01/09/25 DS: Diagnosis Problem List Completed Was Problem List Reviewed/Reconciled?: Yes Hospital Course Hospital Course Hospital course: Reason for hospitalization: Osteomyelitis Summary: This patient is a 59-year-old female with a past medical history of type II DM, HTN, HLD, and neuropathy who presented to [facility] ED on 01/04 for pain in her left finger. Patient was admitted for management of osteomyelitis in her left middle finger. The patient noted that she had a burn injury about 2 days prior to admission when she was cooking food due to loss of sensation at her fingers. Afterwards the patient was not too concerned, however it was noted that the patient had swelling of that finger along with pain, which prompted her to go to the ED. Hand x-ray taken in the ED showed osteomyelitis in the distal phalanx of the left third digit. Initially, due to the location osteomyelitis, staff in the ED tried to request to transfer out to a facility with a hand surgeon specialist. However when the patient reached out to [facility] and [facility], both hand surgeons on-call did not believe that the patient required transfer. Those surgeons noted that IV antibiotics alone could be used to manage the patient's osteomyelitis of the left third phalanx. Patient would have to wait until 01/07 for PICC line placement and recommendations from infectious disease. In between that time, it was noted that the patient had an erythematous left lower extremity, so ultrasound was ordered, which showed a nonocclusive DVT. Additionally, due to hemoglobin A1c of over 11%, the patient was started on insulin degludec 8 units and advised to follow-up outpatient for additional management of her diabetes. PICC line was successfully placed on 01/07 and infectious disease recommended 6 weeks of ceftriaxone and doxycycline. Patient was initially planned to discharge on that date, however there was an issue with setting up home health, so the patient remained in the hospital as a result. During the hospitalization stay, the patient requested additional tablets of [place] and Valium, and stated that she takes 2-3 times as much as he is prescribed. Nursing staff were concerned that the patient was self-medicating due to frequent episodes of excessive lethargy, so avasure was placed in the patient's room. Medical staff had lengthy discussions with the patient and the patient's daughter, who is her middleware developer, about these concerns, especially so after the patient's daughter attempted to disable the camera. On 01/09, the patient was discharged back to home with home health and was advised to have closer monitoring of her diabetes, continue Eliquis, take losartan, and to continue antibiotic regimen until 02/15/2025 to complete a 6-week course. Discharge Recommendations: - Follow up with PCP within 1 week of discharge - Continue rest of medications as previously prescribed - Return to the ED or call EMS if symptoms return and/or worsen - Please take Eliquis 10 mg PO BID until 01/12/25 then switch to Eliquis 5 mg PO BID afterwards - Please continue antibiotic regimen (IV ceftriaxone 2g daily through PICC line and Doxycycline 100mg tablet twice a day) until 02/15/2025 - Please take insulin degludec 8 units at night - Please take losartan 25 mg by mouth daily for high blood pressure - Follow up at [facility] for your left hand at [address] [place] [address] Call [phone] for appointment If you don't have a PCP, you can make an appointment at the [facility]: [address] [facility] [address] [place] [address] Hospital Diagnoses: #Osteomyelitis, left distal third phalanx #Left knee replacement #Nonocclusive DVT, left peroneal, left popliteal #Insulin-dependent type 2 diabetes, uncontrolled #Chronic back pain #Primary hypertension #Anxiety disorder Patient plan of care was discussed with attending physician Dr. Adonay Barrett, PGY-1 Time Spent with Patient Time attestation: Total time spent providing and/or coordinating discharge services: Time spent: Greater than 30 minutes Home Health Home Health Referral Orders: 01/09/25 14:12 Home Health Referral Routine Reason For Exam: IV abx Home-Bound The patient must either because of illness or injury, need the aid of supportive devices such as crutches, canes, wheelchairs, and walkers; the use of special transportation; or the assistance of another person in order to leave their place of residence; OR have a condition such that leaving his or her home is medically contraindicated. In addition, the patient also meets the following criteria: patient is normally unable to leave the home and leaving home requires considerable taxing effort. Addendum to Home Health Certification Practitioner's Certification: I certify that the patient has been under my care in the hospital and the care of attending physician (see below). We had a [id number] encounter on (see date below). My clinical findings indicate that the patient is home bound per the above criteria and the Home Health Services noted in these orders are medically necessary. The primary reason for the qvfg-xs-gozy encounter is related to the fact that the patient requires home health services. Date Certifying Wocn-oa-Zhkm Physician Encounter: 01/04/25 Physician's Name who will Assume Oversight for Services: Dacia [facility] Physician's Phone No.who will Assume Oversight for Service: HEALTH INSURANCE AGENT - Community Resources: Yes PT to Evaluate: No PT to evaluate and provide a treatmnet plan to increase patient's mobility and strength. Wound Care: No IV Therapy: Yes IV Medication: ceftriaxone IV Dose: 2gm IV Frequency: qd IV Stop Date: 02/15/25 Discontinue PICC Line Once Treatment Complete: Yes RN Safety Evaluation: Yes RN to evaluate and create a plan of care that will produce positive outcomes. Palliative Treatment: No Palliative treatment and evaluate the need for hospice. Home Health Aide - Personal Care: Yes Home Health Aide to assist with any ADL's. Exam Vital Signs Temp Pulse Resp BP Pulse Ox O2 Del Method O2 Flow Rate 97.3 F 81 16 92/54 L 93 L Room Air 2 01/09/25 12:00 01/09/25 12:01/09/25 12:01/09/25 12:01/09/25 12:01/09/25 12:01/07/25 11:45 Narrative Exam Physical Exam: General: Sleepy, no acute distress. Skin: Warm, dry, intact. Head: Normocephalic, atraumatic. Eye: Normal conjunctiva, PERRL. Cardiovascular: Regular rate and rhythm, no murmur, +S1/S2. Respiratory: Lungs are clear to auscultation, respirations unlabored, no crackles, no wheezing. Gastrointestinal: Soft, nontender, non-distended. No guarding or rebound tenderness. Extremities: No edema, no cyanosis, no clubbing. Left third phalanx bandaged. Neuro: No focal deficits observed. Conversant, moving all extremities. No overt cerebellar signs/incoordination. Psychiatric: Cooperative, appropriate affect. Discharge Plan Plan Patient Disposition: Home w/HOME HEALTH Patient condition on transfer: Stable Care Plan Goals: Please take Eliquis 10 mg PO BID until 01/12/25 then switch to Eliquis 5 mg PO BID afterwards Please continue antibiotic regimen (IV ceftriaxone 2g daily through PICC line and Doxycycline 100mg tablet twice a day) until 02/15/2025 Please take insulin degludec 8 units at night Please take losartan 25 mg by mouth daily for high blood pressure Continue all other home medications as prescribed Follow-up with your PCP within 1 week or follow-up with [facility] [address] [place] [address] If your symptoms worsen or if you develop new chest pain, shortness of breath, dizziness or severe abdominal pain - please come back to the ED immediately. 1) Follow up at [facility] for your left hand at [address] [place] [address]. [place] Call [phone] for appointment. 2) Wound care to left 3rd finger once a day and as needed for falling off. Cover finger with plastic bag, shower than remove bag and change dressing - Wash hands with soap and water than remove old dressing including adaptic gauze. Cleanse wound with wound cleanser spray and pat dry. Wash hands again. Cover wound with adaptic gauze. Layer with dry gauze and secure with small gauze roll once a day. Elevate hand above heart level to help with swelling. If active bleeding occurs, apply tight dressing and return to MD or ER. ? Notify primary doctor or return to Emergency Room if any of the following: ? Fever above 100.6? F. ? Increased pain ? Increase swelling ? Red streaks around your wound ? Drainage becomes foul smelling or changes color ? The wound is larger or deeper ? The wound looks dried out or dark ? Bleeding that does not stop with holding pressure Prescriptions/Referrals Prescriptions/Med Rec: New doxycycline hyclate 100 mg Tablet 100 mg PO BID 38 Days Qty: 76 0RF losartan 25 mg Tablet 25 mg PO QDAY 30 Days Qty: 30 0RF insulin degludec 100 unit/mL (3 mL) insulin pen 8 unit subcut QDAY Qty: 15 0RF (DME) Blood Glucose Test Strip See Rx Instructions .Route Qty: 50 0RF Rx Instructions: Make sure the meter is charged and ready to use. Wash your hands with soap and warm water, and dry well before each test. Massage or shake out your hand to get blood into your finger. Use a concepcion to prick your finger. Squeezing from the base of the finger, gently place a small amount of blood onto the test strip. Place the strip in the meter. After a few seconds, the blood sugar reading will appear. Track and record your results. You may want to keep notes about anything that might have affected your reading. Dispose of the lancet and strip in a trash container. (DME) lancets Misc See Rx Instructions .Route Qty: 100 0RF Rx Instructions: Hold the lancing device firmly against the side of your finger. Press the release button to puncture (DME) FreeStyle Kike 3 Plus Sensor Device See Rx Instructions .Route Qty: 2 0RF Rx Instructions: As directed (DME) FreeStyle Kike 3 [place] Misc See Rx Instructions .Route Qty: 1 0RF Rx Instructions: As directed (DME) pen needle, diabetic [Pen Needle] 29 gauge x 1/2 needle See Rx Instructions .Route Qty: 100 0RF Rx Instructions: As directed ceftriaxone in dextrose,iso-os 2 gram/50 mL Piggyback 2 g IV QDAY 30 Days Qty: 24 1RF Eliquis 5 mg tablet 10 mg PO BID 3 Days Qty: 12 0RF Eliquis 5 mg tablet 5 mg PO BID 30 Days Qty: 60 0RF Rx Instructions: Please start taking Eliquis 5mg PO BID after 01/12 (once completed Eliquis 10mg PO BID regimen) Continued hydrocodone-acetaminophen 10-325 mg Tablet 1 tab PO Q8H PRN (Reason: Pain) aspirin 81 mg Tablet 81 mg PO QDAY diazepam [Valium] 10 mg tablet 10 mg PO HS Referrals: Dacia Armstrong [Primary Care Provider] Patient/Caregiver Discharge Instructions Other Discharge Activity Instructions:: Please take Eliquis 10 mg PO BID until 01/12/25 then switch to Eliquis 5 mg PO BID afterwards Please continue antibiotic regimen (IV ceftriaxone 2g daily through PICC line and Doxycycline 100mg tablet twice a day) until 02/15/2025 Please take insulin degludec 8 units at night Please take losartan 25 mg by mouth daily for high blood pressure Continue all other home medications as prescribed Follow-up with your PCP within 1 week or follow-up with [facility] [address] [place] [address] If your symptoms worsen or if you develop new chest pain, shortness of breath, dizziness or severe abdominal pain - please come back to the ED immediately. 1) Follow up at [facility] for your left hand at [address] [place] [address]. [place] Call [phone] for appointment. 2) Wound care to left 3rd finger once a day and as needed for falling off. Cover finger with plastic bag, shower than remove bag and change dressing - Wash hands with soap and water than remove old dressing including adaptic gauze. Cleanse wound with wound cleanser spray and pat dry. Wash hands again. Cover wound with adaptic gauze. Layer with dry gauze and secure with small gauze roll once a day. Elevate hand above heart level to help with swelling. If active bleeding occurs, apply tight dressing and return to MD or ER. ? Notify primary doctor or return to Emergency Room if any of the following: ? Fever above 100.6? F. ? Increased pain ? Increase swelling ? Red streaks around your wound ? Drainage becomes foul smelling or changes color ? The wound is larger or deeper ? The wound looks dried out or dark ? Bleeding that does not stop with holding pressure Education Materials: Nutrition for Wound Healing, Wound Care Dc, ED BURN Wound Check [No Infection] Print Language: [place]an Stand Alone Forms: Maria Luisa Award Info., Patient Portal Info Letter Discharge Order Discharge Orders: Discharge (Routine); Ordered 01/09/25 Ordered By: Daniel Ayers Quality Discharge Quality Measures VTE prophylaxis Attestestation MD Attestation I have examined the patient, reviewed labs and imaging findings, discussed the case with the resident(s), and reviewed entered orders. I agree with the plan of care as outlined in this note. Time Spent: [address] Adonay MD
[2025-01-09 16:00] VITALS: BP 93/51; PULSE 63; RESP 16; TEMP 36.3; O2SAT 96
--- NOTE | 2025-01-09 16:01 | PC.CC ---
Met w/ patient at bedside with friend in room and anne marie Acosta on speakerphone. Per patient, she self-injected insulin 20 years ago for GDM and hated it . She was on insulin during a prior hospitalization but did not discharge on it due to not liking it and describes what sounds like hypoglycemic events. She reports recently using a Freestyle Kike 2 CGM. She reports neuropathy in her fingertips. She reports poor memory and relies on her friend and daughter to supply some information about her healthcare. Explained the importance of insulin use at this time for DM management and improvement of her OM. Explained safety measures including Freestyle Kike 3 Plus CGM system prescribed and basal only insulin to prevent and detect hypoglycemia. Patient willing to receive education on insulin pen device and injection technique. Provided verbal education and demonstration on insulin pen assembly, priming and use. Discussed injection sites and technique. Patient able to appropriately assemble insulin pen, prime and deliver injection into demonstration cube with some coaching and re-direction. Friend videotaped portion of education and family was recommended to view training videos online as well as request additional training from [facility] and RN. Discussed importance of multimodal DM management including medication, SMBG, nutrition, physical activity and effective primary care. Patient verbalizes that she intends to see PCP tomorrow. Patient verbalized presence of LE blood clots and being on a blood thinner. Noted Eliquis was not continued at discharge. Requested Rx from Dr. Ayers.
--- NOTE | 2025-01-09 17:12 | PC.NURSE ---
pt has signed her discharge papers, waiting for her daughter
--- NOTE | 2025-01-09 18:10 | PC.NURSE ---
p/c to pt's noel, Rosa, pt is discharged and ready to be picked up
--- NOTE | 2025-01-09 18:13 | PC.NURSE ---
p/c to noel Ignacio, pt is ready to be picked up, noel says she is waiting for delivery of medical supplies and will be here as soon as she can
--- NOTE | 2025-01-10 08:32 | PC.CC ---
Finalized DC Summary sent to HH and I[facility].
== END 2025-01-09 19:00 | disposition home health service (06) | DRG 420 ==
LOC: SERX 16:03 → SERHOLD 16:16 → S3SX 20:04
PROVIDERS: Internal Medicine Infectious Disease; Nurse Practitioner Family; Admitting Provider Student in an Organized Health Care Education/Training Program; Emergency Provider Family Medicine; PCP Internal Medicine; Visit Provider Student in an Organized Health Care Education/Training Program
DX: E11.69 Type 2 diabetes mellitus with other specified complication (principal); I10 Essential (primary) hypertension; E78.5 Hyperlipidemia, unspecified; G89.29 Other chronic pain; M54.9 Dorsalgia, unspecified; E11.65 Type 2 diabetes mellitus with hyperglycemia; I82.432 Acute embolism and thrombosis of left popliteal vein; Z96.652 Presence of left artificial knee joint; M86.8X4 Other osteomyelitis, hand; E11.40 Type 2 diabetes mellitus with diabetic neuropathy, unspecified; E87.6 Hypokalemia; F41.9 Anxiety disorder, unspecified; M17.12 Unilateral primary osteoarthritis, left knee; Z79.01 Long term (current) use of anticoagulants; Z79.2 Long term (current) use of antibiotics; Z79.4 Long term (current) use of insulin; Z79.899 Other long term (current) drug therapy; Z87.891 Personal history of nicotine dependence; Z79.82 Long term (current) use of aspirin
CPT/HCPCS: 36415; 71045; 73120; 73560; 80053; 80061; 80202; 81001; 83036; 83605; 83735; 84100; 84145; 85025; 85652; 86140; 86703; 86803; 87040; 87086; 93971; 99284; A4649; C1751; C1894; J0696; J1642; J1644; J1815; J2250; J2270; J2405; J2765; J3373; J3475; J3490; J7050; J7120; A9270

== ENCOUNTER → 2025-01-18 | Outpatient (CLI) | payer MEDICAID, SELFPAY | END | disposition home or self-care (01) | PROVIDERS: PCP Internal Medicine; Referring Provider Internal Medicine; Visit Provider Physician Assistant | DX: T81.89XA Other complications of procedures, not elsewhere classified, initial encounter (principal); S61.203A Unspecified open wound of left middle finger without damage to nail, initial encounter; S81.002A Unspecified open wound, left knee, initial encounter; X58.XXXA Exposure to other specified factors, initial encounter; E11.40 Type 2 diabetes mellitus with diabetic neuropathy, unspecified; Z79.4 Long term (current) use of insulin; Z79.84 Long term (current) use of oral hypoglycemic drugs; Z87.891 Personal history of nicotine dependence | CPT/HCPCS: 99214; A9270; G0463 ==

== ENCOUNTER → 2025-01-22 | Outpatient (CLI) | payer MEDICAID, SELFPAY | END | disposition home or self-care (01) | LOC: SWHD 14:14 | PROVIDERS: PCP Internal Medicine; Referring Provider Internal Medicine; Visit Provider Student in an Organized Health Care Education/Training Program | DX: T81.89XA Other complications of procedures, not elsewhere classified, initial encounter (principal); S61.203A Unspecified open wound of left middle finger without damage to nail, initial encounter; S81.002A Unspecified open wound, left knee, initial encounter; X58.XXXA Exposure to other specified factors, initial encounter; E11.40 Type 2 diabetes mellitus with diabetic neuropathy, unspecified; Z79.4 Long term (current) use of insulin; Z79.84 Long term (current) use of oral hypoglycemic drugs; Z87.891 Personal history of nicotine dependence; G47.00 Insomnia, unspecified; S89.92XS Unspecified injury of left lower leg, sequela; V89.2XXS Person injured in unspecified motor-vehicle accident, traffic, sequela | CPT/HCPCS: 99212; G0463 ==

== ENCOUNTER → 2025-01-29 | Outpatient (CLI) | payer MEDICAID, SELFPAY | END | disposition home or self-care (01) | LOC: SWHD 14:52 | PROVIDERS: PCP Internal Medicine; Referring Provider Internal Medicine; Visit Provider Student in an Organized Health Care Education/Training Program | DX: T81.89XA Other complications of procedures, not elsewhere classified, initial encounter (principal); S61.203A Unspecified open wound of left middle finger without damage to nail, initial encounter; S81.002A Unspecified open wound, left knee, initial encounter; X58.XXXA Exposure to other specified factors, initial encounter; E11.40 Type 2 diabetes mellitus with diabetic neuropathy, unspecified; Z79.4 Long term (current) use of insulin; Z79.84 Long term (current) use of oral hypoglycemic drugs; Z87.891 Personal history of nicotine dependence; G47.00 Insomnia, unspecified; S89.92XS Unspecified injury of left lower leg, sequela; V89.2XXS Person injured in unspecified motor-vehicle accident, traffic, sequela | CPT/HCPCS: 99213; A9270; G0463 ==

== ENCOUNTER → 2025-01-29 | Outpatient (CLI) | payer MEDICAID, SELFPAY ==
--- NOTE | 2025-01-29 16:46 | XR_ITS ---
EXAMINATION: Soft tissue left knee TECHNIQUE: Grayscale sonographic images soft tissue left knee Date and time: January 29, 2025, 1700 hours INDICATIONS: Knee swelling and pain 2 years, nonhealing knee wound FINDINGS: Soft tissue mass at the area of concern left lateral knee 19 x 5 x 12 mm IMPRESSION: Soft tissue mass at the area of concern 19 x 5 x 12 mm, consider small abscess, clinical correlation advised
== END | disposition home or self-care (01) ==
PROVIDERS: PCP Physician Assistant; Referring Provider Physician Assistant; Visit Provider Physician Assistant
DX: S81.002A Unspecified open wound, left knee, initial encounter (principal); X58.XXXA Exposure to other specified factors, initial encounter
CPT/HCPCS: 76882

== ENCOUNTER → 2025-02-01 | Outpatient (CLI) | payer MEDICAID, SELFPAY ==
--- NOTE | 2025-02-01 09:45 | XR_ITS ---
Examination: Breast ultrasound, unilateral, right Date and time of exam: February 01, 2025, 1026 hours INDICATIONS: Mammogram November 21, 1999 2514 mm focal asymmetry retroareolar region right breast Technique: Real-time pena scale ultrasonographic imaging performed right breast including all 4 quadrants as well as nipple retroareolar and axillary region. Findings: No cystic or solid mass IMPRESSION: BI-RADS Category 1: Negative study
== END | disposition home or self-care (01) ==
PROVIDERS: PCP Nurse Practitioner Family; Referring Provider Nurse Practitioner Family; Visit Provider Nurse Practitioner Family
DX: R92.312 Mammographic fatty tissue density, left breast (principal)
CPT/HCPCS: 76641

== ENCOUNTER → 2025-02-12 | Outpatient (CLI) | payer MEDICAID, SELFPAY | END | disposition home or self-care (01) | LOC: SWHD 14:51 | PROVIDERS: Visit Provider Student in an Organized Health Care Education/Training Program | DX: T81.89XA Other complications of procedures, not elsewhere classified, initial encounter (principal); S61.203A Unspecified open wound of left middle finger without damage to nail, initial encounter; S81.002A Unspecified open wound, left knee, initial encounter; X58.XXXA Exposure to other specified factors, initial encounter; E11.40 Type 2 diabetes mellitus with diabetic neuropathy, unspecified; Z79.84 Long term (current) use of oral hypoglycemic drugs; Z79.4 Long term (current) use of insulin; Z87.891 Personal history of nicotine dependence; M86.8X4 Other osteomyelitis, hand; S89.92XS Unspecified injury of left lower leg, sequela; V89.2XXS Person injured in unspecified motor-vehicle accident, traffic, sequela | CPT/HCPCS: 10060; A9270 ==

== ENCOUNTER 2025-02-19 15:57 | Emergency (ER) | payer MEDICAID, SELFPAY ==
[2025-02-19 16:07] VITALS: BP 150/89; PULSE 71; RESP 19; TEMP 36.5; O2SAT 98
--- NOTE | 2025-02-19 16:15 | XR_ITS ---
Examination: Hand, left 3 views Date and time: February 19, 2025, 1623 hours, comparison 01/04/2025 Technique: Hand AP, oblique, lateral 3 views Indications: Redness swelling and pain involving the left third digit 3 weeks. FINDINGS: Worsening osteomyelitis destroying the distal phalanx third digit Interval periosteal new bone involving the middle phalanx third digit No foreign body IMPRESSION: Worsening osteomyelitis distal phalanx third digit Osteomyelitis now also involves the middle phalanx third digit
--- NOTE | 2025-02-19 16:16 | PD.EDRME ---
Rapid Medical Screening Exam RME Arrival date/time: 02/19/25 15:57 59-year-old female with a history of type 2 diabetes presents to the emergency room with a chief complaint of swelling, warmth, tenderness to the patient's left hand middle finger. Patient has a PICC line in place for antibiotics for osteomyelitis. Patient states she is here for more antibiotics that she ran out at home I have greeted and performed a focused initial assessment of this patient. A comprehensive ED assessment and evaluation of the patient, analysis of all test results, and completion of the medical decision making process will be conducted by additional ED providers. Chief Complaint: General Adult/Misc Complain Time Seen by Provider: 02/19/25 16:09 Vital signs reviewed by provider: No Exam: Swelling, tenderness, warmth to the left hand middle finger Clear bilateral Clinical Impression: Cellulitis/osteomyelitis
[2025-02-19 16:54] LABS: Lactate (Lactic Acid) 0.9 mMol/L (0.4-2.0)
[2025-02-19 16:56] LABS: Basophils # (Auto) 0.0 Thou/mm3 (0.0-0.2); Basophils % (Auto) 1 % (0-2.5); Eosinophils # (Auto) 0.2 Thou/mm3 (0.0-0.5); Eosinophils % (Auto) 3 % (0-10); Hematocrit 45.5 % (36.0-46.0); Hemoglobin 14.9 g/dL (12.0-16.0); Immature Granulocytes Auto 0.01 Thou/mm3 (0.00-0.00); Lymphocytes # (Auto) 1.7 Thou/mm3 (1.0-4.8); Lymphocytes % (Auto) 30 % (10-50); Mean Corpuscular HGB Conc 32.7 g/dl (31.0-37.0); Mean Corpuscular Hemoglobin 27.7 pg (25.0-35.0); Mean Corpuscular Volume 85 fL (80-100); Monocytes # (Auto) 0.4 Thou/mm3 (0.0-0.8); Monocytes % (Auto) 7 % (0-12); Neutrophils # (Auto) 3.4 Thou/mm3 (1.8-7.7); Neutrophils % (Auto) 59 % (37-80); Nucleated Red Blood Cell # 0.00 Thou/mm3 (0.00-0.00); Nucleated Red Blood Cell % 0 /100 WBC (0); Platelet Count 280 Thou/mm3 (140-440); RDW Standard Deviation 39.8 fL (36.4-46.3); Red Blood Count 5.38 Miln/mm3 (4.00-5.20); White Blood Count 5.8 Thou/mm3 (3.6-11.0)
[2025-02-19 17:24] LABS: Alanine Aminotransferase 42 U/L (10-49); Albumin, Serum 4.8 gm/dL (3.5-5.0); Albumin/Globulin Ratio 1.8 (1.2-2.2); Alkaline Phosphatase 104 U/L (46-116); Anion Gap 11 (7-16); Aspartate Amino Transferase 35 U/L (0-34); BUN/Creatinine Ratio 16 Ratio (12-20); Bilirubin,Total 0.5 mg/dL (0.3-1.2); Blood Urea Nitrogen 13 mg/dL (9-23); C-Reactive Protein < 0.5 mg/dL (0.0-0.9); Calcium 9.3 mg/dL (8.3-10.6); Calcium (Corrected) 9.3 mg/dL (8.5-10.1); Carbon Dioxide 26.3 mMol/L (20.0-31.0); Chloride 106 mMol/L (98-107); Creatinine (Component) 0.8 mg/dL (0.6-1.3); Globulin 2.7 gm/dL (2.3-3.5); Glucose 134 mg/dL (74-106); Osmolality,Calculated 287 (275-295); Potassium 4.2 mMol/L (3.4-5.1); Procalcitonin < 0.04 ng/ml (0.0-0.49); Sodium 143 mMol/L (136-145); Total Protein 7.5 gm/dL (5.7-8.2); eGFR > 60 See Note
[2025-02-19 17:58] LABS: Sed Rate (ESR) 15 mm/hr (0-30)
[2025-02-19 21:43] VITALS: BP 135/88; PULSE 61; RESP 18; TEMP 36.7; O2SAT 98
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
[2025-02-19] MEDS: cefTRIAXone/D5w 1gm IV premix 1 GM/50 ML BAG IV (23:31)
[2025-02-19 23:34] VITALS: BP 132/76; PULSE 72; RESP 15; TEMP 36.7; O2SAT 100
[2025-02-20 00:17] VITALS: BP 167/90; PULSE 79; RESP 18; TEMP 36.8; O2SAT 95
== END 2025-02-20 00:18 | disposition home or self-care (01) ==
PROVIDERS: Nurse Practitioner Family; Emergency Provider Emergency Medicine; PCP Internal Medicine
DX: E11.69 Type 2 diabetes mellitus with other specified complication (principal); M86.9 Osteomyelitis, unspecified
CPT/HCPCS: 36415; 73130; 80053; 83605; 84145; 85025; 85652; 86140; 87040; 96365; 99283; J0696

== ENCOUNTER → 2025-02-19 | Outpatient (CLI) | payer MEDICAID, SELFPAY | END | disposition home or self-care (01) | LOC: SWHD 14:07 | PROVIDERS: PCP Internal Medicine; Referring Provider Internal Medicine; Visit Provider Student in an Organized Health Care Education/Training Program | DX: T81.89XA Other complications of procedures, not elsewhere classified, initial encounter (principal); S61.203A Unspecified open wound of left middle finger without damage to nail, initial encounter; S81.002A Unspecified open wound, left knee, initial encounter; X58.XXXA Exposure to other specified factors, initial encounter; E11.40 Type 2 diabetes mellitus with diabetic neuropathy, unspecified; Z79.4 Long term (current) use of insulin; Z79.84 Long term (current) use of oral hypoglycemic drugs; Z87.891 Personal history of nicotine dependence; G47.00 Insomnia, unspecified; S89.92XS Unspecified injury of left lower leg, sequela; V89.2XXS Person injured in unspecified motor-vehicle accident, traffic, sequela | CPT/HCPCS: 99214; G0463 ==

== ENCOUNTER → 2025-02-26 | Outpatient (CLI) | payer MEDICAID, SELFPAY | END | disposition home or self-care (01) | LOC: SWHD 12:56 | PROVIDERS: PCP Internal Medicine; Referring Provider Internal Medicine; Visit Provider Student in an Organized Health Care Education/Training Program | DX: T81.89XA Other complications of procedures, not elsewhere classified, initial encounter (principal); S61.203A Unspecified open wound of left middle finger without damage to nail, initial encounter; S81.002A Unspecified open wound, left knee, initial encounter; X58.XXXA Exposure to other specified factors, initial encounter; E11.40 Type 2 diabetes mellitus with diabetic neuropathy, unspecified; Z79.4 Long term (current) use of insulin; Z79.84 Long term (current) use of oral hypoglycemic drugs; Z87.891 Personal history of nicotine dependence; G47.00 Insomnia, unspecified; S89.92XS Unspecified injury of left lower leg, sequela; V89.2XXS Person injured in unspecified motor-vehicle accident, traffic, sequela | CPT/HCPCS: 99214; A9270; G0463 ==

== ENCOUNTER 2025-03-04 16:13 | Emergency (ER) | payer MEDICAID, SELFPAY ==
[2025-03-04 16:28] VITALS: BP 130/68; PULSE 86; RESP 18; TEMP 37; O2SAT 99
--- NOTE | 2025-03-04 16:38 | XR_ITS ---
Examination: Bilateral hands, 3 views. Technique: Bilateral AP, bilateral oblique, bilateral lateral hands 3 views Date and time of exam: March 04, 2025, 1647 hours INDICATION: Chronic hand pain years. FINDINGS: Erosions involving distal aspect distal phalanx third digit right hand Prominent bone destruction involving mid and distal aspect distal phalanx left third digit Periosteal new bone involving the middle phalanx third digit left hand No fractures Impression: Osteomyelitis distal phalanx right third digit Osteomyelitis middle and distal phalanges left third digit Elective MRI bilateral hands follow-up would best assess for extent of osteomyelitis as well as exclude soft tissue abscess
--- NOTE | 2025-03-04 16:38 | XR_ITS ---
EXAMINATION: Bilateral wrist 3 views TECHNIQUE: AP bilateral wrist, oblique bilateral wrist single view, bilateral lateral wrist single view total 3 views Date and time: March 04, 2025, 1653 hours INDICATIONS: Chronic wrist pain months. FINDINGS: Moderate osteopenia No fracture or dislocation involving either wrist No cortical erosions involving either wrist no foreign bodies IMPRESSION: No fractures or cortical bone destruction involving either wrist
--- NOTE | 2025-03-04 17:20 | EDRME_ITS ---
Rapid Medical Screening Exam [facility] Arrival date/time: 03/04/25 16:13 59-year-old female with a history of type 2 diabetes, and osteomyelitis in the bilateral hands presents to the emergency room needing x-rays of her bilateral hands and wrists. Patient states she has an appointment with a specialist and has a lab slip to get x-rays before seen specialist. Patient denies any symptoms I have greeted and performed a focused initial assessment of this patient. A comprehensive ED assessment and evaluation of the patient, analysis of all test results, and completion of the medical decision making process will be conducted by additional ED providers. Chief Complaint: Hand/Wrist Problems Time Seen by Provider: 03/04/25 16:30 Vital signs: Vital Signs Temperature 98.6 F 03/04/25 16:28 Pulse Rate 86 03/04/25 16:28 Respiratory Rate 18 03/04/25 16:28 Blood Pressure 130/68 03/04/25 16:28 Pulse Oximetry (%) 99 03/04/25 16:28 Oxygen Delivery Method Room Air 03/04/25 16:28 Vital signs reviewed by provider: Yes Exam: No tenderness, erythema, swelling to the bilateral hands GCS of 15 alert and oriented x 3 strong and regular rhythm clear bilateral lung sounds Clinical Impression: Osteomyelitis/encounter for x-rays of her bilateral hands
--- NOTE | 2025-03-04 20:51 | PD.EDADULT ---
ED General RME/HPI General Chief complaint: Hand/Wrist Problems Stated complaint: WANTS XRAYS OF HANDS, HAS ORDERS Time Seen by Provider: 03/04/25 16:30 Arrival date/time: 03/04/25 16:13 CC: Patient requesting x-rays of both of her hands and wrist secondary to osteomyelitis wanting a double check before she is referred on to a specialist in [place] who is requesting x-rays. Patient denies fever chills shortness of breath difficulty breathing. Patient already has a PICC line and is receiving daily antibiotics for osteomyelitis in the third digit of both hands. RME / HPI RME / HPI narrative: 03/04/25 16:13 59-year-old female with a history of type 2 diabetes, and osteomyelitis in the bilateral hands presents to the emergency room needing x-rays of her bilateral hands and wrists. Patient states she has an appointment with a specialist and has a lab slip to get x-rays before seen specialist. Patient denies any symptoms I have greeted and performed a focused initial assessment of this patient. A comprehensive ED assessment and evaluation of the patient, analysis of all test results, and completion of the medical decision making process will be conducted by additional ED providers. Exam: No tenderness, erythema, swelling to the bilateral hands GCS of 15 alert and oriented x 3 strong and regular rhythm clear bilateral lung sounds Impression: Osteomyelitis/encounter for x-rays of her bilateral hands Related Data Home Medications ?Medication ?Instructions ?Recorded ?Confirmed aspirin 81 mg tablet 81 mg PO QDAY 01/30/21 01/04/25 hydrocodone 10 mg-acetaminophen 1 tab PO Q8H PRN Pain 01/30/21 01/04/25 325 mg tablet diazepam 10 mg tablet (Valium) 10 mg PO HS 01/04/25 01/04/25 Previous Rx's ?Medication ?Instructions ?Recorded blood sugar diagnostic (Blood #50 ea 01/09/25 Glucose Test strips) blood-glucose sensor (FreeStyle #2 ea 01/09/25 Kike 3 Plus Sensor device) blood-glucose,tour narrator,cont #1 ea 01/09/25 (FreeStyle Kike 3 [place]) insulin degludec 100 unit/mL (3 8 unit (0.08 mL) subcut QDAY #15 mL 01/09/25 mL) subcutaneous pen lancets #100 ea 09/17/25 pen needle, diabetic 29 gauge x #100 ea 01/09/25/ (Pen Needle) doxycycline hyclate 100 mg capsule 100 mg PO BID #20 caps 02/19/25 insulin degludec 100 unit/mL (3 8 unit (0.08 mL) subcut QDAY #15 mL 02/19/25 mL) subcutaneous pen Allergies Allergy/AdvReac Type Severity Reaction Status Date / Time No Known Allergies Allergy Verified 03/04/25 16:17 Review of Systems Review of Systems Narrative Review of Systems: GEN: No fever, no chills, no weight loss EYES: No discharge, no visual changes, no pain HEENT: No ear pain, no congestion, no sore throat PULM: No shortness of breath, no cough, no congestion CV: No chest pain, no dyspnea on exertion, no palpitations GI: No nausea, no vomiting, no diarrhea, no pain, no constipation : No frequency, no urgency, no dysuria MUSC/SKEL: No joint pain, no back pain SKIN: No rash PSYCH: No hallucinations, no depression HEME/LYMPH: No easy bleeding or bruising tendencies NEURO: No weakness, no headache Past Medical History Past Medical History NEUROLOGIC: Negative Neurological Disorders, Cerebrovascular Accident, Transient Ischemic Attacks (TIA), Dementia, Alzheimer's Disease, Parkinson's Disease, Brain Tumor, Meningitis, Seizures, Epilepsy, Multiple Sclerosis, Cerebral Palsy, Amyotrophic Lateral Sclerosis (ALS/[place]'s), Guillain-[place] Syndrome, Spina Bifida, Paralysis, Peripheral Neuropathy, Lomeli's Palsy, Subdural Hematoma, Migraine, Head Trauma, Spinal Cord Injury or Traumatic Brain Injury CARDIAC: Positive Hypercholesterolemia and Hypertension; Negative Cardiac Disorders, Myocardial Infarction, Cardiac Arrhythmia, Atrial Fibrillation, Angina, Heart Murmur, Coronary Artery Disease, Atherosclerotic Heart Disease, Peripheral Vascular Disease, Aneurysm, Congestive Heart Failure, Congenital Heart Disease, Valvular Heart Disease, Rheumatic Fever, Cardiomyopathy, Edema, Pericarditis, Cellulitis, Deep Vein Thrombosis, Hypotension or Varicose Veins RESPIRATORY: Negative Chronic Obstructive Pulmonary Disease (COPD), Asthma, Bronchitis, Emphysema, Pneumonia, Pulmonary Fibrosis, Cystic Fibrosis, Tuberculosis, Pulmonary Embolism, Pulmonary Edema, Sleep Apnea, Smoking or Smoking Exposure GASTROINTESTINAL: Negative Gastrointestinal Disorders, Hepatitis, Cirrhosis, Pancreatitis, Celiac Disease, Gall Bladder Disease, Gastrointestinal Bleed, Esophageal Varices, Yeung's Esophagus, Colitis, Ulcerative Colitis, Diverticulitis, Diverticulosis, Ulcer, Colorectal Cancer, Irritable Bowel, Crohn's Disease, Obstructive Bowel, Hiatal Hernia, Hemorrhoids, Gastroesophageal Reflux Disease or Obesity GENITOURINARY: Negative Genitourinary Disorders, Renal Disease, Kidney Stones, Polycystic Kidney Disease, Neurogenic Bladder, Inguinal Hernia, Dialysis, Prostate Cancer or Benign Prostatic Hyperplasia REPRODUCTIVE: Negative Breast Cancer, Endometriosis, Genital Herpes, Gonorrhea, Pelvic Inflammatory Disease, Previous Pregnancies, Syphilis, Testicular Cancer or Uterine Prolapse MUSCULOSKELETAL: Positive Rheumatoid Arthritis; Negative Musculoskeletal Disorders, Muscular Dystrophy, Myasthenia Gravis, Marfan's Syndrome, Bone Cancer, Arthritis, Osteoporosis, Degenerative Disk Disease, Gout, Scoliosis, Carpal Tunnel Syndrome, Fibromyalgia, Fractures, Degenerative Joint Disease, Osteomyelitis or Poliovirus ENT: Negative Cataracts, Glaucoma, Blind, Retinal Detachment, Macular Degeneration, Ear Infection, Deafness, Head Trauma or Eye Prosthesis ENDOCRINE: Positive Endocrine Disorders (DM) and Diabetes Mellitus Type 2; Negative Diabetes Mellitus Type 1, Hypoglycemia, Chipley's Syndrome, [place]'s Disease, Hyperthyroidism, Hypothyroidism, Parathyroid Disease, Pituitary Disease, Systemic Lupus Erythematosus, Syndrome of Inappropriate Antidiuretic Hormone (SIADH), Adrenal Disease or Graves' Disease HEMATOLOGIC: Negative Blood Disorders, Anemia, Leukemia, Hemophilia, Thalassemia, Sickle Cell Disease or Clotting Problems PSYCHO/SOCIAL: Positive Anxiety; Negative Psychiatric Problems, Schizophrenia, Recreational Drug Use, Bipolar Disorder, Depression, Behavior Problems, Self-Mutilation, Attention Deficit Disorder, Attention Deficit Hyperactivity Disorder, Depression, Post Traumatic Stress Disorder or Eating Disorder OTHER HISTORY: Negative Hospitalization, Autoimmune Disease, Down Syndrome, Autism, Developmental Delay, Shingles, Falls, Blood Transfusions, Blood Transfusion Reaction, Anesthesia Reactions, Organ Transplant, Chemotherapy, Radiation Therapy, Hyperbaric Therapy, MRSA, VRSA, Vancomycin-Resistant Enterococci, Human Immunodeficiency Virus (HIV), Chicken Pox, Measles, Mumps, Rubella (Citizen [place] Measles), Pertussis, Clostridium Difficile, Cancer, Breast Cancer, Cervical Cancer, Colorectal Cancer, Lung Cancer, Ovarian Cancer, Prostate Cancer or Testicular Cancer Family History FAMILY HISTORY: Negative Family Psychiatric Problems, Family Respiratory Disorders, Family Cardiac Disorders, Family Gastrointestinal Problems, Family Cancer, Family Surgery or Family Anesthesia Reaction Surgical History SURGICAL: Negative Cardiac Surgery, Open Heart Surgery, Coronary Artery Bypass Graft, Valve Replacement, Vascular Surgery, Coronary Stent, Cardiac Catheterization, Pacemaker, Angiogram, Auto Implanted Cardiovert Defib, Carotid Endarterectomy, Endocrine Surgery, Thyroidectomy, Ear Surgery, Tympanostomy Tube, Eye Surgery, Nose Surgery, Oral Surgery, Tonsillectomy, Adenoidectomy, Cochlear Implant, Corneal Transplant, Throat Surgery, Abdominal Surgery, Tracheostomy, Gastric Bypass Surgery, Gastrostomy, Bowel Surgery, Nephrectomy, Transurethral Resection, Joint Replacement, Amputation, Open Reduction Internal Fixation, Arthroscopy, Mastectomy, Lumpectomy, Hysterectomy, Tubal Ligation, Section, Vasectomy or Organ Transplant Social History SMOKING STATUS: Never smoker SECOND HAND EXPOSURE: No SUBSTANCE USE: marijuana ED Exam Narrative Physical exam: [General: Not in any acute distress Head normocephalic HEENT: Within acceptable limits Neck is supple nontender Chest equal chest rise nontender to palpation Respiratory: Clear to auscultation no wheezes crackles or rubs CV: Rate rhythm is regular no murmurs rubs or clicks Abdomen is distended secondary to body habitus soft nontender no masses positive bowel sounds all 4 quadrants Back: No CVA tenderness no spinous process tenderness from cervical spine thoracic and lumbar spine Skin: Tips of both third digits right and left hand are dressed out with full heavy dressing., PICC line in the right upper inner arm dressing is clean dry intact otherwise skin is intact no petechiae rash induration ulceration or crepitus Extremities: Moving all extremity against resistance cap refill less than 2 seconds neurosensory intact Neuro: Awake alert oriented x3 Glascow coma 15 no focal deficits] Course Quality Measures none Orders Category Date Time Status XR hand comp BI min 3V Stat Exams 03/04/25 16:38 Completed XR wrist comp BI min 3V Stat Exams 03/04/25 16:38 Completed Vital Signs Vital signs: Vital Signs Temperature 98.6 F 03/04/25 16:28 Pulse Rate 86 03/04/25 16:28 Respiratory Rate 18 03/04/25 16:28 Blood Pressure 130/68 03/04/25 16:28 Pulse Oximetry (%) 99 03/04/25 16:28 Oxygen Delivery Method Room Air 03/04/25 16:28 Discharge Plan Plan Patient Disposition: HOME (Self Care) Patient condition on transfer: Stable Prescriptions/Referrals Prescriptions/Med Rec: No Action hydrocodone-acetaminophen 10-325 mg Tablet 1 tab PO Q8H PRN (Reason: Pain) aspirin 81 mg Tablet 81 mg PO QDAY diazepam [Valium] 10 mg tablet 10 mg PO HS insulin degludec 100 unit/mL (3 mL) insulin pen 8 unit subcut QDAY Qty: 15 0RF (DME) Blood Glucose Test Strip See Rx Instructions .Route Qty: 50 0RF Rx Instructions: Make sure the meter is charged and ready to use. Wash your hands with soap and warm water, and dry well before each test. Massage or shake out your hand to get blood into your finger. Use a concepcion to prick your finger. Squeezing from the base of the finger, gently place a small amount of blood onto the test strip. Place the strip in the meter. After a few seconds, the blood sugar reading will appear. Track and record your results. You may want to keep notes about anything that might have affected your reading. Dispose of the lancet and strip in a trash container. (DME) lancets Misc See Rx Instructions .Route Qty: 100 0RF Rx Instructions: Hold the lancing device firmly against the side of your finger. Press the release button to puncture (DME) FreeStyle Kike 3 Plus Sensor Device See Rx Instructions .Route Qty: 2 0RF Rx Instructions: As directed (DME) FreeStyle Kike 3 [place] Misc See Rx Instructions .Route Qty: 1 0RF Rx Instructions: As directed (DME) pen needle, diabetic [Pen Needle] 29 gauge x 1/2 needle See Rx Instructions .Route Qty: 100 0RF Rx Instructions: As directed doxycycline hyclate 100 mg capsule 100 mg PO BID Qty: 20 0RF insulin degludec 100 unit/mL (3 mL) insulin pen 8 unit subcut QDAY Qty: 15 0RF Referrals: No Primary/Family,Physician [Primary Care Provider] - In 1 week Problem List Clinical Impression: Finger osteomyelitis Patient/Caregiver Discharge Instructions Other Activity Instructions:: Follow-up with specialist as stated continue get antibiotics through your PICC line. Education Materials: Osteomyelitis Dc Print Language: Kitt[place] Stand Alone Forms: Maria Luisa Award Info., Work/School Release, Patient Portal Info Letter PA/[employer] Supervising Physician PA/[employer] Supervising Physician: Junito Jacinto ENP MDM Clinical Information Provided by: patient Medical Records reviewed [facility] Meds/Rx considered, not ordered None Labs/Rad/Tests considered, not ordered None Chronic Illness/Social Conditions Explain: Diabetes osteomyelitis EKG EKG not done Labs Labs: none Imaging Imaging interpretation: interpreted by me Imaging Interpretation(s): Bilateral hand x-rays show osteomyelitis of the third digit of both the right and left hand Wrist x-ray shows no acute finding.
== END 2025-03-04 20:59 | disposition home or self-care (01) ==
PROVIDERS: Emergency Provider Emergency Medicine
DX: E11.69 Type 2 diabetes mellitus with other specified complication (principal); M86.9 Osteomyelitis, unspecified
CPT/HCPCS: 73110; 73130; 99282

== ENCOUNTER → 2025-03-04 | Outpatient (CLI) | payer MEDICAID, SELFPAY | END | disposition home or self-care (01) | LOC: SWHD 13:59 | PROVIDERS: PCP Internal Medicine; Referring Provider Internal Medicine; Visit Provider Student in an Organized Health Care Education/Training Program | DX: T81.89XA Other complications of procedures, not elsewhere classified, initial encounter (principal); S61.203A Unspecified open wound of left middle finger without damage to nail, initial encounter; S81.002A Unspecified open wound, left knee, initial encounter; X58.XXXA Exposure to other specified factors, initial encounter; E11.40 Type 2 diabetes mellitus with diabetic neuropathy, unspecified; Z79.4 Long term (current) use of insulin; Z79.84 Long term (current) use of oral hypoglycemic drugs; Z87.891 Personal history of nicotine dependence; G47.00 Insomnia, unspecified; S89.92XS Unspecified injury of left lower leg, sequela; V89.2XXS Person injured in unspecified motor-vehicle accident, traffic, sequela; M86.8X4 Other osteomyelitis, hand | CPT/HCPCS: 99213; A9270; G0463 ==

== ENCOUNTER → 2025-03-12 | Outpatient (CLI) | payer MEDICAID, SELFPAY | END | disposition home or self-care (01) | LOC: SWHD 13:55 | PROVIDERS: PCP Internal Medicine; Referring Provider Internal Medicine; Visit Provider Student in an Organized Health Care Education/Training Program | DX: T81.89XA Other complications of procedures, not elsewhere classified, initial encounter (principal); S61.203A Unspecified open wound of left middle finger without damage to nail, initial encounter; S81.002A Unspecified open wound, left knee, initial encounter; X58.XXXA Exposure to other specified factors, initial encounter; E11.40 Type 2 diabetes mellitus with diabetic neuropathy, unspecified; Z79.84 Long term (current) use of oral hypoglycemic drugs; Z79.4 Long term (current) use of insulin; Z87.891 Personal history of nicotine dependence; M86.8X4 Other osteomyelitis, hand; S89.92XS Unspecified injury of left lower leg, sequela; V89.2XXS Person injured in unspecified motor-vehicle accident, traffic, sequela | CPT/HCPCS: 99213; G0463 ==

== ENCOUNTER 2025-03-20 10:23 | Outpatient (RCR) | payer MEDICAID, SELFPAY | END 2025-03-24 23:59 | disposition home or self-care (01) | LOC: SWHD 10:23 | PROVIDERS: PCP Internal Medicine; Referring Provider Internal Medicine; Visit Provider Student in an Organized Health Care Education/Training Program | DX: T81.89XA Other complications of procedures, not elsewhere classified, initial encounter (principal); S61.203A Unspecified open wound of left middle finger without damage to nail, initial encounter; S81.002A Unspecified open wound, left knee, initial encounter; X58.XXXA Exposure to other specified factors, initial encounter; E11.40 Type 2 diabetes mellitus with diabetic neuropathy, unspecified; Z79.84 Long term (current) use of oral hypoglycemic drugs; Z79.4 Long term (current) use of insulin; Z87.891 Personal history of nicotine dependence; M86.8X4 Other osteomyelitis, hand; S89.92XS Unspecified injury of left lower leg, sequela; V89.2XXS Person injured in unspecified motor-vehicle accident, traffic, sequela | CPT/HCPCS: 82962; 99212; G0277; G0463 ==

== ENCOUNTER 2025-04-24 10:48 | Outpatient (RCR) | payer MEDICAID, SELFPAY | END 2025-04-24 23:59 | disposition home or self-care (01) | LOC: SWHD 10:48 | PROVIDERS: PCP Internal Medicine; Referring Provider Internal Medicine; Visit Provider Student in an Organized Health Care Education/Training Program | DX: T81.89XA Other complications of procedures, not elsewhere classified, initial encounter (principal); S61.203A Unspecified open wound of left middle finger without damage to nail, initial encounter; S81.002A Unspecified open wound, left knee, initial encounter; X58.XXXA Exposure to other specified factors, initial encounter; E11.40 Type 2 diabetes mellitus with diabetic neuropathy, unspecified; Z79.84 Long term (current) use of oral hypoglycemic drugs; Z79.4 Long term (current) use of insulin; Z87.891 Personal history of nicotine dependence; M86.8X4 Other osteomyelitis, hand; S89.92XS Unspecified injury of left lower leg, sequela; V89.2XXS Person injured in unspecified motor-vehicle accident, traffic, sequela | CPT/HCPCS: 82962; 99212; 99214; A9270; G0277; G0463 ==